=== PATIENT | female | born 1955 ===

== ENCOUNTER 2020-05-19 22:58 | Outpatient (REF) | payer OTHER, SELFPAY ==
[2020-05-20 01:52] LABS: SARS COV2 PCR INHOUSE NEGATIVE (Negative)
== END 2020-05-19 22:59 | disposition home or self-care (01) ==
LOC: HO.LAB 22:58
PROVIDERS: Visit Provider Internal Medicine
DX: Z20.828 Contact with and (suspected) exposure to other viral communicable diseases (principal)
CPT/HCPCS: U0003

== ENCOUNTER 2020-06-09 10:59 | Outpatient (REF) | payer OTHER, SELFPAY ==
[2020-06-09 11:23] LABS: COVID-19 Test Negative (Negative)
== END 2020-06-09 11:00 | disposition home or self-care (01) ==
LOC: HO.EMPCOV 10:59
PROVIDERS: Visit Provider Internal Medicine
DX: Z20.828 Contact with and (suspected) exposure to other viral communicable diseases (principal)
CPT/HCPCS: 87635; C9803

== ENCOUNTER → 2020-10-08 13:06 | Outpatient (REF) | payer OTHER, SELFPAY ==
--- NOTE | 2020-10-08 | ECG_ITS ---
Hook-up date: 2020-10-08 13:24:00 Duration: 24:42:00 Test Indications: PAF Medications: 40310 QRS complexes 158 Ventricular ectopics which represent <1 % of total QRS comp. 24 Supraventricular ectopics which represent <1 % of total QRS comp. * Paced QRS complexs which represent % of total QRS comp. VENTRICULAR ECTOPY 158 Isolated 0 Bigeminal Cycles 0 Couplets 0 Runs 0 Beats in Runs * Beats LONGEST at * BPM at :: -- * Beats FASTEST at * BPM at :: -- SUPRAVENTRICULAR ECTOPY 24 Isolated 0 Couplets 0 Runs 0 Beats in Runs * Beats LONGEST at * BPM at :: -- * Beats FASTEST at * BPM at :: -- HEART RATES 45 MIN at 10:05:37 2020-10-09 63 AVG 104 MAX at 16:07:41 2020-10-08 LONGEST RR 1.3440 secs at 10:05:36 2020-10-09 S-T LEVELS Channel 1 - 128 mm at 13:24:00 2020-10-08 - 128 mm at 13:24:00 2020-10-08 Channel 2 - 128 mm at 13:24:00 2020-10-08 - 128 mm at 13:24:00 2020-10-08 Channel 3 - 128 mm at 03:24:31 -- - 128 mm at 03:24:31 Basic rhythm Normal sinus rhythm No long pause or profound bradycardia Frequent Sinus bradycardia Rare Premature atrial complexes No sustained Atrial fibrillation Patient did not report any symptoms in the diary Referred By: Rafael Cummins Overread By: RAUDEL GARCIA MD
== END ==
LOC: HO.CARD 13:06
PROVIDERS: Visit Provider Internal Medicine
DX: I48.0 Paroxysmal atrial fibrillation (principal)
CPT/HCPCS: 93225; 93226

== ENCOUNTER → 2020-10-16 08:16 | Outpatient (BNVA) | payer OTHER, SELFPAY | PROVIDERS: PCP Internal Medicine; Visit Provider Internal Medicine | DX: I48.0 Paroxysmal atrial fibrillation (principal); R00.1 Bradycardia, unspecified; Z51.81 Encounter for therapeutic drug level monitoring; Z79.899 Other long term (current) drug therapy | CPT/HCPCS: 93005 ==

== ENCOUNTER 2020-10-23 08:12 | Outpatient (REF) | payer OTHER, SELFPAY ==
[2020-10-23 11:13] LABS: MANUAL DIFF FLAG NO
[2020-10-23 11:26] LABS: Basophils Percent Auto 0.5 % (0-2); Eosinophils Absolute Auto 0.1 X10*3/uL (0.0-0.4); Eosinophils Percent Auto 2.5 % (0-4); Hematocrit 39.1 % (37-47); Hemoglobin 12.6 g/dl (12.0-16.0); Lymphocytes Absolute Auto 1.8 X10*3/uL (1.2-4.9); Lymphocytes Percent Auto 40.1 % (20-40); Mean Corpuscular HGB Conc 32.2 g/dl (31.0-35.0); Mean Corpuscular Hemoglobin 30.3 pg (27.0-33.0); Mean Platelet Volume 11.7 fL (9.4-12.3); Monocytes Absolute Auto 0.3 X10*3/uL (0.1-1.2); Monocytes Percent Auto 7.1 % (2-11); Neutrophils Absolute Auto 2.2 X10*3/uL (2.0-8.3); Neutrophils Percent Auto 49.8 % (45-73); Platelet Count 245 X10*3/uL (160-400); Red Blood Count 4.16 X10*6/uL (4.20-5.50); Red Cell Distribution Width 12.8 % (11.0-16.0); White Blood Count 4.4 X10*3/uL (4.8-10.8)
[2020-10-23 11:46] LABS: Alanine Aminotransferase 21 U/L (0-31); Anion Gap 10 (12-20); Aspartate Amino Transferase 17 U/L (5-31); Blood Urea Nitrogen 22 mg/dL (9-16); Calcium 9.3 mg/dL (8.4-10.2); Carbon Dioxide 31 mmol/L (22-29); Chloride 105 mmol/L (96-108); Cholesterol 224 mg/dL; Estimated Glomerular Filt Rate > 60; Glucose Fasting 94 mg/dL (60-99); HDL Cholesterol 71 mg/dL; LDL Cholesterol Calculated 139 mg/dl; Potassium 4.5 mmol/L (3.3-5.1); Sodium 141 mmol/L (135-145); Triglycerides 74 mg/dL
[2020-10-23 11:53] LABS: TSH reflex Free T4 1.21 uIU/mL (0.32-4.0); Vitamin D 25-OH Total 40.1 ng/mL (>30)
[2020-10-23 14:48] LABS: FIT Int Ctl YES; FIT1 POSITIVE (NEGATIVE)
== END 2020-10-23 08:13 | disposition home or self-care (01) ==
LOC: HO.HMGCLDS 08:12
PROVIDERS: PCP Internal Medicine; Visit Provider Internal Medicine
DX: Z00.01 Encounter for general adult medical examination with abnormal findings (principal); I48.0 Paroxysmal atrial fibrillation; I10 Essential (primary) hypertension; Z78.0 Asymptomatic menopausal state
CPT/HCPCS: 36415; 80048; 80061; 82274; 82306; 84443; 84450; 84460; 85025

== ENCOUNTER → 2020-11-30 13:03 | Outpatient (BNVA) | payer OTHER, SELFPAY | PROVIDERS: PCP Internal Medicine; Referring Provider Internal Medicine; Visit Provider Nurse Practitioner ==

== ENCOUNTER 2021-01-02 08:45 | Day surgery (SDC) | payer OTHER, SELFPAY ==
--- NOTE | 2021-01-01 08:51 | P.CONAN_ITS ---
Documented by User: Lady Potter 01/01/21 08:54 HPI - Anesthesia Eval Consult details Narrative: 65yo F for Colonoscopy PAF - no OAC, ASA only PMFSH Active Problems Active Problems: All Active Problems (Updated 12/27/20 @ 16:23 by Stacey Hurley) Encounter for monitoring anti-arrhythmic therapy (Acute) Sinus bradycardia (Acute) Colon cancer screening (Acute) Family history of colon cancer (Acute) Positive FIT (fecal immunochemical test) (Acute) Family history of breast cancer in first degree relative (Acute) Menopause (Acute) Colonoscopy refused (Acute) Paroxysmal atrial fibrillation (Acute) Past Medical History Medical History (Updated 12/27/20 @ 16:23 by Stacye Hurley) Family history of breast cancer in first degree relative Menopause On beta laura at home Paroxysmal atrial fibrillation Positive FIT (fecal immunochemical test) Family History Family History Father Diabetes mellitus Sister Breast cancer, Onset Age: 49 Sister Thyroid cancer Daughter Breast cancer, Onset Age: 28 Surgical History Surgical History No pertinent past surgical history Social History Social History (Updated 11/30/20 @ 13:10 by Barbie Noriega) Household Members: Family Alcohol intake: never Patient Tobacco Use Status: Never used Tobacco Use of substances other than those prescribed or required for medical reasons: No Are you DNR?: No Advance Directives: No Advance Directives Information Provided: Yes Meds Allergies Allergy/AdvReac Type Severity Reaction Status Date / Time No Known Allergies Allergy Verified 01/02/21 09:02 [No Known Allergies*] Home Medications Medication Instructions Recorded Confirmed Last Taken Type aspirin 81 mg tablet,delayed 81 mg PO DAILY 10/09/20 12/27/20 12/18/20 08:00 History release cholecalciferol (vitamin D3) 50 50 mcg PO DAILY 10/09/20 12/27/20 Unknown History mcg (2,000 unit) capsule Exam Exam Date and Time: January 01, 2021 0851 Pertinent Lab Results Pertinent Lab Results: Laboratory Tests 10/23/20 10/23/20 08:40 08:40 WBC 4.4 L Hgb 12.6 Hct 39.1 Plt Count 245 Sodium 141 Potassium 4.5 Chloride 105 Carbon Dioxide 31 H BUN 22 H Creatinine 0.77 Narrative Narrative: EKG sinus bradycardia at 49/Min; no significant ST-T changes; normal MA/QTc. Holter-09/2020 Basic rhythm Normal sinus rhythm No long pause or profound bradycardia Frequent Sinus bradycardia Rare Premature atrial complexes No sustained Atrial fibrillation Patient did not report any symptoms in the diary Echocardiogram -2018 LVEF 60-65%; mild mitral and tricuspid regurgitation Myocardial perfusion imaging -2018 Normal perfusion without any ischemia or infarction Assessment and Plan Assessment Anesthesia Assessment: Chart Reviewed Documented by User: Meri Guzman 01/02/21 09:24 [facility] Past Medical History Medical History (Updated 12/27/20 @ 16:23 by Stacey Hurley) Family history of breast cancer in first degree relative Menopause On beta laura at home Paroxysmal atrial fibrillation Positive FIT (fecal immunochemical test) Family History Family History Father Diabetes mellitus Sister Breast cancer, Onset Age: 49 Sister Thyroid cancer Daughter Breast cancer, Onset Age: 28 Surgical History Surgical History No pertinent past surgical history Social History Social History (Updated 11/30/20 @ 13:10 by Barbie Noriega) Household Members: Family Alcohol intake: never Patient Tobacco Use Status: Never used Tobacco Use of substances other than those prescribed or required for medical reasons: No Are you DNR?: No Advance Directives: No Advance Directives Information Provided: Yes Meds Allergies Allergy/AdvReac Type Severity Reaction Status Date / Time No Known Allergies Allergy Verified 01/02/21 09:02 [No Known Allergies*] Home Medications Medication Instructions Recorded Confirmed Last Taken Type aspirin 81 mg tablet,delayed 81 mg PO DAILY 10/09/20 12/27/20 12/18/20 08:00 History release cholecalciferol (vitamin D3) 50 50 mcg PO DAILY 10/09/20 12/27/20 Unknown History mcg (2,000 unit) capsule Exam Airway Mallampati Class: II TM Dist: >3cm Neck ROM: Full Heart: rrr Lungs: cta Assessment and Plan Assessment Anesthesia Assessment: Anesthesia Plan Discussed and Chart Reviewed Final Anesthetic Review NPO: Yes ASA Class: II Final Preanesthetic Review: No Changes in Pt Med Stat and Consent Obtained/Reviewed Patient Risk: Intermediate Procedure Risk: Intermediate Anesthetic Plan Anesthetic Plan: MAC: Disposition: Standard PACU
[2021-01-02 09:09] VITALS: BP 132/58; PULSE 50; RESP 18; TEMP 36.3; O2SAT 99; BMI 24.8
[2021-01-02] MEDS: Lactated Ringers 1,000 ML 100 ML IVCONT (09:16)
--- NOTE | 2021-01-02 09:46 | MHC.SHP ---
Pre-Procedural Eval Section B Chief Complaint: positive fit test Relevant Family History (Specify if Yes): No Relevant Social History: None Present Medications: see Short Stay Collaborative assessment Medical History: Significant History (Family history of breast cancer in first degree relative Menopause On beta laura at home Paroxysmal atrial fibrillation Positive FIT (fecal immunochemical test)) History of Previous Operations: No relevant previous surgery Allergies: Allergies Allergy/AdvReac Type Severity Reaction Status Date / Time No Known Allergies Allergy Verified 01/02/21 09:02 [No Known Allergies*] Review of Systems Sugical H&P ROS: Negative: Constitution, Cardiovascular, Respiratory, Neurological, Psychiatric, Hem-Onc, Allergic/Immunologic, Gastrointestinal, Genitourinary, Musculoskeletal, Integumentary, Endocrine and Eyes/Ears/Nose/Throat Exam Surgical H&P Exam: Normal: HEENT, Normal: Heart, Normal: Lungs, Normal: Extremities, Normal: Abdomen, Normal: Skin and Normal: Neurological Plan Diagnosis/Plan: Unchanged I have reviewed the history and physical and performed a pertinent physical examination on my patient. No changes have occurred unless specified.
--- NOTE | 2021-01-02 09:59 | PM.OP ---
Brief Operative Note Date of Service: 01/02/21 Pre-op diagnosis: pos FIT test, altered bowel habit Post-op diagnosis: same Procedure: see op note Surgeon: Indu Thomas MD Anesthesia: MAC Was an Ground Defence Officer used for this Procedure?: No Estimated blood loss (mL): 0 Condition: stable Disposition: PACU
--- NOTE | 2021-01-02 09:59 | W.PM.OPN ---
Operative Note Operative Note Date of Service: 01/02/21 Narrative: Operative Information Procedure Description: Colonoscopy COLONOSCOPY Instrument: Olympus variable stiffness pediatric scope 190L Colonoscopy Monitoring: Vital signs and clinical assessment, continuous EKG monitoring, Pulse oximetry, Carbon Dioxide monitoring and blood pressure monitoring were done throughout the procedure. Colon withdrawal time was 52 minutes. Procedure: The patient was placed in the left lateral decubitis position and pre-procedure medications were administered. After a digital rectal examination of the ano-rectum, the video colonoscope was inserted into the rectum and advanced through the colon to the cecum/TI. The colonoscope was slowly withdrawn in a retrograde panoramic fashion and the colon mucosa was carefully examined including a retroflexed view of the rectum. Findings and interventions are described below. Procedure Difficulty:easy Findings: Terminal Ileum-normal Cecum:normal Ascending Colon: normal Transverse Colon -normal Descending Colon:normal Sigmoid Colon: Many diverticula seen, varying sizes. x2 pedunculated polyps noted, measuring 10-12 mm and removed with cold snare-retrieved Rectum: Retroflexion with small internal hemorrhoids, grade I, In mid rectum there was a kate cake shaped polyp lesion about 15 mm with slightly depressed center. It lifted v easily with ORISE. It was then removed with cautery and the edges ablated. After it was removed it was suctioned and would not come up the scope channel. The scope was pulled out with the polyp attached but on looking polyp not seen. an extensive search of the rectum and return to cecum with careful inspection back to the rectum failed to reveal the polyp lesion that was removed. We checked the towels and flushed scope several times but nothing seen. The area was marked with christel ink and biopsies taken from polypectomy site. Anorectum - normal Colon preparation: [place] Bowel Preparation Scale Right colon; 2 Transverse colon: 2 Left colon; 2 (0 = Unprepared colon segment with mucosa not seen due to solid stool that cannot be cleared. 1 = Portion of mucosa of the colon segment seen, but other areas of the colon segment not well seen due to staining, residual stool and/or opaque liquid. 2 = Minor amount of residual staining, small fragments of stool and/or opaque liquid, but mucosa of colon segment seen well. 3 = Entire mucosa of colon segment seen well with no residual staining, small fragments of stool or opaque liquid) Impression and Post Procedure Diagnosis: polyps internal hemorrhoids diverticular disease Plan: High fiber diet leaflet Avoid straining at stool, epsom salts and sitz bath, anusol supps or cream Repeat Colonoscopy in 3-[address] A/P due to the appearance of the polyp, it may have been early dysplasia, neoplasia is also possible but the mucosa lifted easily with ORISE We will also give her enema in post op area and see if we can retrieve any tissue. Above findings were reviewed with the patient and relevant handouts were provided if indicated.
[2021-01-02 11:03] VITALS: BP 121/60; PULSE 57; RESP 16; TEMP 36; O2SAT 98
[2021-01-02 11:18] VITALS: BP 136/68; PULSE 54; RESP 18; O2SAT 99
[2021-01-02 11:33] VITALS: BP 137/74; PULSE 56; RESP 18; O2SAT 100
[2021-01-02] MEDS: Sodium Phosphate,Mono-Dibasic 133 ML ENEMA PR (11:38)
[2021-01-02 12:10] VITALS: BP 137/64; PULSE 56; RESP 18; TEMP 36.4; O2SAT 100
--- NOTE | 2021-01-02 12:54 | PC.NURSE ---
1150 TO BR AFTER WEST ENEMA RETURNS STRAINED BY RN TO SEND TO LAB 1210 PT RETURN TO PACU 11 SIT AT BS PREP FOR DC AFTER VS
--- NOTE | 2021-01-02 13:04 | PC.NURSE ---
Discharge instructions given by Janice Flannery RN
== END 2021-01-02 12:55 | disposition home or self-care (01) ==
PROVIDERS: PCP Internal Medicine; Visit Provider Internal Medicine Gastroenterology
PROC: 0DJD8ZZ Inspection of Lower Intestinal Tract, Via Natural or Artificial Opening Endoscopic (ICD-10-PCS; CPT 45378; principal; 2021-01-02 10:10)
DX: R19.5 Other fecal abnormalities (principal); D12.5 Benign neoplasm of sigmoid colon; K62.1 Rectal polyp; K64.0 First degree hemorrhoids; K57.30 Diverticulosis of large intestine without perforation or abscess without bleeding; I48.0 Paroxysmal atrial fibrillation; Z79.82 Long term (current) use of aspirin; Z79.899 Other long term (current) drug therapy; Z80.0 Family history of malignant neoplasm of digestive organs
CPT/HCPCS: 45385; 45381; 88305

== ENCOUNTER 2021-01-22 07:26 | Outpatient (REF) | payer OTHER, SELFPAY ==
--- NOTE | ~2021-01-22 | MM_ITS ---
EXAMINATION: BONE DENSITOMETRY CLINICAL INDICATION: Asymptomatic menopausal state. COMPARISON: Baseline BD dated 08/31/2018. TECHNIQUE: Using a Pramana DXA System (software version: 13.1) manufactured by [employer], dual-energy x-ray absorptiometry was performed of the lumbar spine and left hip. The images are of good technical quality. Summary results are attached. FINDINGS: AP SPINE L1-L3 (excluding L4): The data of L1-L4 has been changed to exclude the L4 vertebral body, because probable degenerative changes at this level may cause overestimation of lumbar spine density. Current: BMD 1.277 g/cm2, Z-score 2.5, T-score 0.9, normal, 0.5% decrease from baseline (<5% change is not significant). Baseline: BMD 1.284 g/cm2. LEFT FEMUR, NECK: Current: BMD 0.787 g/cm2, Z-score -0.3, T-score -1.8, osteopenia. Baseline: BMD 0.816 g/cm2. LEFT FEMUR, TOTAL: Current: BMD 0.934 g/cm2, Z-score 0.6, T-score -0.6, normal, 1.5% decrease from baseline (<5% change is not significant). Baseline: BMD 0.948 g/cm2. IDENTIFIED RISK FACTORS: Menopause. HISTORY OF FRACTURE: None listed. MEDICATIONS: Vitamin D. MM/XR DEXA axial skeleton IMPRESSION: 1. DIAGNOSIS: Osteopenia based on the lowest T-score value of -1.8 in the femoral neck applying World Health Organization criteria. 2. 10-YEAR FRACTURE RISK PREDICTION, FRAX: Major osteoporotic fracture (clinical spine, forearm, hip or shoulder) 9.9%. Hip fracture 1.3%. 3. Treatment Recommendations: NOF guidelines recommend consideration for treatment in postmenopausal women and men age 50 and older presenting with the following: -A hip or vertebral (clinical or morphometric) fracture. -T-score less than or equal to -2.5 at the femoral neck or spine after appropriate evaluation to exclude secondary causes. -Low bone mass at the hip or spine and a 10-year fracture probability by FRAX of greater than or equal to 3% for hip fracture or greater than or equal to 20% for major osteoporotic fracture based on the [place] adapted WHO algorithm. 4. Other Recommendations: All treatment decisions require clinical judgment and consideration of individual patient factors, including patient preferences, comorbidities, previous drug use, risk factors not captured in the FRAX model (e.g. frailty, falls, vitamin D deficiency, increased bone turnover, interval significant decline in bone density) and possible under or overestimation of fracture risk by FRAX. Additional medical evaluation for secondary cause of low bone mineral density may be appropriate. FUTURE SCAN RECOMMENDATION: People with diagnosed cases of osteoporosis or at high risk for fracture should have regular bone mineral density tests. For patients eligible for Medicare, routine testing is allowed once every 2 years. The testing frequency can be increased to one year for patients who have rapidly progressing disease, those who are receiving or discontinuing medical therapy to restore bone mass, or have additional risk factors.
--- NOTE | ~2021-01-22 | MM_ITS ---
EXAMINATION: MM SCREENING DIGITAL BREAST TOMOSYNTHESIS, BILATERAL CLINICAL INFORMATION: Screening. Asymptomatic. The lifetime risk of breast cancer based on the Tyrer-Cuzick Model is 23.2%. Additional annual screening with breast MRI may be of benefit in women with a Score of 20% or greater. COMPARISON: Mammography: 08/31/2018 and 05/25/2007. TECHNIQUE: Digital breast tomosynthesis is performed in both the craniocaudal and mediolateral oblique views along with computer-aided detection (CAD). Synthesized 2D images are generated from the tomosynthesis. FINDINGS: The breasts are heterogeneously dense, which may obscure small masses (ACR BI-RADS breast composition Category c). There is multiplicity and bilaterality of calcifications which appear essentially stable. The right breast demonstrates a stable parenchymal pattern with architectural distortion superiorly from previous excisional biopsy. Within the upper outer aspect of the left breast, there is a region of architectural distortion, somewhat similar to prior studies but for which 90-degree mediolateral and craniocaudal spot compression views and possible ultrasound are recommended. MM/MM tomosynthesis screening BI IMPRESSION: Region of architectural distortion upper outer aspect of the left breast in patient with no listed history of left breast surgery for which additional workup is recommended as described. ASSESSMENT: BI-RADS 0: Incomplete - Need Additional Imaging Evaluation RECOMMENDATION: 1. Additional views of the left breast. 2. Targeted ultrasound if warranted after review of the additional views. 3. Radiology department staff will contact the patient for additional imaging. Consideration of breast MRI due to elevated risk score.
== END 2021-01-22 07:27 | disposition home or self-care (01) ==
LOC: HO.MAMMO 07:26
PROVIDERS: Visit Provider Internal Medicine
DX: Z12.31 Encounter for screening mammogram for malignant neoplasm of breast (principal); Z13.820 Encounter for screening for osteoporosis; Z78.0 Asymptomatic menopausal state; Z80.3 Family history of malignant neoplasm of breast
CPT/HCPCS: 77063; 77067; 77080

== ENCOUNTER 2021-01-25 08:03 | Outpatient (REF) | payer OTHER, SELFPAY ==
--- NOTE | ~2021-01-25 | MM_ITS ---
EXAMINATION: MM DIAGNOSTIC DIGITAL BREAST TOMOSYNTHESIS, LEFT US LEFT BREAST CLINICAL INFORMATION: Region of asymmetric density upper outer aspect of the left breast. COMPARISON: Mammography: 01/22/2021 and studies dating back to 05/25/2007 TECHNIQUE: Digital breast tomosynthesis is performed. 2D images are generated from the tomosynthesis. The following views are obtained: Spot compression left craniocaudal and 90 degree views. Targeted left breast ultrasound. FINDINGS: The breasts are heterogeneously dense, which may obscure small masses (ACR BI-RADS breast composition Category c). Additional views show a region of architectural distortion; however, it does appear similar to study of 08/31/2018. There is no history of surgery or trauma in this location. There are also noted to be some prominent retroareolar ducts. Targeted left breast ultrasound was then performed. No abnormal solid mass or suspicious cyst was identified. No region of architectural distortion or sound shadowing was identified with ultrasound in the upper outer aspect. The retroareolar region there are noted to be some prominent ducts without abnormal filling defects. Patient denies nipple discharge. Six-month follow-up left breast mammogram suggested to ensure stability of the density in the upper outer aspect. Results are discussed with the patient at time of visit. MM/MM tomosynthesis added views L IMPRESSION: Similar-appearing region of architectural distortion upper outer aspect of the left breast for which 6 month follow-up study is recommended. ASSESSMENT: BI-RADS 3: Probably Benign RECOMMENDATION: Diagnostic mammography in 6 months. This patient's information was entered into a reminder system with a target due date for their next mammogram.
--- NOTE | ~2021-01-25 | US_ITS ---
EXAMINATION: US DIAGNOSTIC ULTRASOUND BREAST, LEFT CLINICAL INFORMATION: Region of architectural distortion upper outer aspect. Prominent retroareolar ducts.. COMPARISON: Mammogram of same day and studies dating back to May 25, 2007. TECHNIQUE: Ultrasound of the breast is performed with real-time johnson scale imaging and color Doppler. FINDINGS: Targeted left breast ultrasound was performed. No abnormal solid mass or suspicious cystic was identified. No region of architectural distortion or sound shadowing was identified with ultrasound in the upper outer aspect. The retroareolar region there are noted to be some prominent ducts without abnormal filling defects. Patient denies nipple discharge. Six-month follow-up left breast mammogram suggested to ensure stability of the density in the upper outer aspect. Results are discussed with the patient at time of visit. US/US breast LT limited IMPRESSION: Similar appearing region of architectural distortion upper outer aspect of the left breast for which 6 month follow-up study is recommended. ASSESSMENT: BI-RADS 3: Probably Benign RECOMMENDATION: Diagnostic mammography in 6 months.
== END 2021-01-25 08:04 | disposition home or self-care (01) ==
LOC: HO.MAMMO 08:03
PROVIDERS: Visit Provider Internal Medicine
DX: N64.89 Other specified disorders of breast (principal)
CPT/HCPCS: 76642; 77061; 77065

== ENCOUNTER 2021-01-28 10:49 | Outpatient (REF) | payer OTHER, SELFPAY ==
[2021-01-28 14:23] LABS: Alanine Aminotransferase 22 U/L (0-31); Albumin Level 4.2 g/dL (3.5-5.0); Alkaline Phosphatase 55 U/L (39-117); Anion Gap 13 (12-20); Aspartate Amino Transferase 16 U/L (5-31); Bilirubin Total 0.3 mg/dL (0.0-1.0); Blood Urea Nitrogen 18 mg/dL (9-16); Calcium 9.7 mg/dL (8.4-10.2); Carbon Dioxide 25 mmol/L (22-29); Chloride 105 mmol/L (96-108); Estimated Glomerular Filt Rate > 60; Glucose Random 87 mg/dL (60-115); Potassium 4.2 mmol/L (3.3-5.1); Sodium 139 mmol/L (135-145); Total Protein 6.9 g/dL (6.5-8.0)
== END 2021-01-28 10:50 | disposition home or self-care (01) ==
LOC: HO.HMGCLDS 10:49
PROVIDERS: PCP Internal Medicine; Visit Provider Internal Medicine Gastroenterology
DX: K75.81 Nonalcoholic steatohepatitis (NASH) (principal); R19.5 Other fecal abnormalities
CPT/HCPCS: 36415; 80053

== ENCOUNTER 2021-01-29 06:14 | Outpatient (REF) | payer OTHER, SELFPAY ==
--- NOTE | ~2021-01-29 | CT_ITS ---
EXAMINATION: CT ABDOMEN AND PELVIS WITH CONTRAST CLINICAL INFORMATION: Other fecal abnormalities. COMPARISON: None. TECHNIQUE: Multidetector volumetric images were obtained from the superior aspect of the liver through the pubic symphysis following administration 85 mL of Omnipaque 350 intravenous contrast. Sagittal and coronal reformatted images were obtained on the technologist's workstation. Oral contrast: No This CT examination was performed using dose optimization techniques as appropriate, variously including the following: *Automated exposure control *Adjustment of mA and/or kV according to patient size (this includes techniques or standardized protocols for targeted exams where dose is matched to indication/reason for exam; i.e. extremities or head) *Use of iterative reconstruction technique DLP: 346 mGy-cm. FINDINGS: LUNG BASES: The lung bases are clear. The heart size is normal. LIVER, GALLBLADDER, AND BILIARY TREE: The liver is normal in size, shape, and attenuation. There is a 9 mm hypodensity right hepatic lobe image 26/3. The gallbladder is unremarkable with no evidence of radiopaque gallstones, gallbladder wall thickening, or obvious pericholecystic inflammatory changes. PANCREAS: Unremarkable. SPLEEN: Unremarkable. ADRENAL GLANDS: Unremarkable. KIDNEYS AND URETERS: The kidneys are normal in size, shape, and attenuation. No hydronephrosis, hydroureter, or calculi seen. No perinephric stranding. BLADDER: Unremarkable. GASTROINTESTINAL TRACT: There is large amount of stool seen throughout the colon without significant distention. The small bowel loops are normal caliber. A few scattered diverticuli seen in the sigmoid colon but no evidence of diverticulitis. Appendix is normal caliber. ABDOMINAL WALL: There is a small umbilical hernia containing fat. LYMPH NODES: Normal. VASCULAR: Unremarkable. PELVIC VISCERA: There is anteverted uterus with a heterogeneous lesion along the anterior myometrium measuring 1.4 cm on sagittal view 45/7. There is no adnexal mass or free fluid. No inguinal hernia. OSSEOUS STRUCTURES: There are degenerative disc changes with vacuum disc phenomenon at L3-L4, L4-L5 and L5-S1 disc levels. There is bilateral L4-L5 and right L5-S1 facet joint arthropathy and hypertrophy. CT/CT abdomen pelvis w con IMPRESSION: Moderate constipation without obstruction. Scattered sigmoid and descending colon diverticulosis without diverticulitis. Anteverted uterus with a heterogeneous lesion along the anterior mid body of the uterus. Question fibroid. Correlate with ultrasound.
[2021-01-29] MEDS: iohexoL 350 MG/ML 100 ML INFUS..BTL IV (08:56)
[2021-01-29] MEDS: Barium Sulfate Oral (Vanilla) 450 ML ORAL.SUSP 900 ML PO (08:57)
== END 2021-01-29 06:15 | disposition home or self-care (01) ==
LOC: HO.CT 06:14
PROVIDERS: PCP Internal Medicine; Visit Provider Internal Medicine Gastroenterology
DX: R19.5 Other fecal abnormalities (principal)
CPT/HCPCS: 74177; Q9967

== ENCOUNTER → 2021-02-26 14:12 | Outpatient (BNVA) | payer OTHER, SELFPAY | PROVIDERS: PCP Internal Medicine; Visit Provider Nurse Practitioner ==

== ENCOUNTER → 2021-04-18 13:25 | Outpatient (BNVA) | payer MEDICARE, SELFPAY | PROVIDERS: PCP Internal Medicine; Referring Provider Internal Medicine; Visit Provider Internal Medicine | DX: I48.0 Paroxysmal atrial fibrillation (principal); R00.1 Bradycardia, unspecified; Z51.81 Encounter for therapeutic drug level monitoring; Z79.899 Other long term (current) drug therapy | CPT/HCPCS: 93005; 99212 ==

== ENCOUNTER → 2021-07-01 14:00 | Outpatient (BNVA) | payer MEDICARE, SELFPAY | PROVIDERS: PCP Internal Medicine; Referring Provider Internal Medicine; Visit Provider Nurse Practitioner | DX: D12.6 Benign neoplasm of colon, unspecified (principal); Z80.0 Family history of malignant neoplasm of digestive organs | CPT/HCPCS: 99212 ==

== ENCOUNTER 2021-07-29 09:53 | Outpatient (REF) | payer MEDICARE, SELFPAY ==
--- NOTE | ~2021-07-29 | MM_ITS ---
EXAMINATION: MM DIAGNOSTIC DIGITAL BREAST TOMOSYNTHESIS, LEFT CLINICAL INFORMATION: Short interval follow-up left breast for question of architectural changes upper outer quadrant. Family history premenopausal breast cancer sister (42), daughter (28), paternal aunt (42), maternal grandmother (60). The lifetime risk of breast cancer based on the Tyrer-Cuzick Model is 25%. COMPARISON: Mammography: 01/25/2021, 01/22/2021 (BI-RADS 0), 08/31/2018, 05/25/2007 TECHNIQUE: Digital breast tomosynthesis is performed in both the craniocaudal and mediolateral oblique views along with computer-aided detection (CAD). Synthesized 2D images are generated from the tomosynthesis. FINDINGS: There are scattered areas of fibroglandular density (ACR BI-RADS breast composition Category b). Parenchymal pattern appears similar to recent prior exams. There is no developing density or interval architectural changes. Again, there are numerous calcifications present, greater upper quadrant. The axilla and skin contours are unremarkable. Left breast will be reassessed again at time of annual bilateral mammography. Preliminary results are provided to the patient at time of visit by the technologist. MM/MM tomosynthesis diagnostic LT IMPRESSION: No developing density or interval architectural changes. ASSESSMENT: BI-RADS 3: Probably Benign RECOMMENDATION: Diagnostic mammography at time of annual bilateral exam, due in 6 months. This patient's information was entered into a reminder system with a target due date for their next mammogram.
== END 2021-07-29 09:54 | disposition home or self-care (01) ==
LOC: HO.MAMMO 09:53
PROVIDERS: Visit Provider Internal Medicine
DX: R92.2 Inconclusive mammogram (principal)
CPT/HCPCS: 77061; 77065

== ENCOUNTER 2021-09-17 09:02 | Outpatient (REF) | payer MEDICARE, SELFPAY ==
[2021-09-17 11:31] LABS: MANUAL DIFF FLAG NO
[2021-09-17 11:50] LABS: Eosinophils Absolute Auto 0.2 X10*3/uL (0.0-0.4); Eosinophils Percent Auto 4.6 % (0-4); Hematocrit 39.7 % (37.0-47.0); Hemoglobin 12.7 g/dl (12.0-16.0); Imm Gran Abs Auto 0.01 X10*3/uL (0.00-0.03); Imm Gran Pct Auto 0.2 % (0.0-0.4); Lymphocytes Absolute Auto 1.6 X10*3/uL (1.2-4.9); Lymphocytes Percent Auto 40.1 % (20-40); Mean Corpuscular Hemoglobin 30.2 pg (27.0-33.0); Mean Corpuscular Volume 94.3 fL (80.0-98.0); Mean Platelet Volume 12.2 fL (9.4-12.3); Monocytes Absolute Auto 0.3 X10*3/uL (0.1-1.2); Monocytes Percent Auto 7.8 % (2-11); Neutrophils Absolute Auto 1.9 x10*3/uL (2.0-8.3); Neutrophils Percent Auto 46.3 % (45-73); Platelet Count 222 X10*3/uL (160-400); Red Blood Count 4.21 X10*6/uL (4.20-5.50); Red Cell Distribution Width 12.5 % (11.0-16.0); White Blood Count 4.1 X10*3/uL (4.8-10.8)
[2021-09-17 12:11] LABS: Alanine Aminotransferase 22 U/L (0-31); Anion Gap 12 (12-20); Aspartate Amino Transferase 17 U/L (5-31); Blood Urea Nitrogen 19 mg/dL (9-16); Calcium 10.4 mg/dL (8.4-10.2); Carbon Dioxide 29 mmol/L (22-29); Chloride 104 mmol/L (96-108); Cholesterol 227 mg/dL; Estimated Glomerular Filt Rate > 60; Glucose Fasting 95 mg/dL (60-99); HDL Cholesterol 68 mg/dL; LDL Cholesterol Calculated 144 mg/dl; Potassium 4.5 mmol/L (3.3-5.1); Sodium 140 mmol/L (135-145); Triglycerides 79 mg/dL
[2021-09-17 12:19] LABS: Vitamin D 25-OH Total 37.4 ng/mL (>30)
== END 2021-09-17 09:03 | disposition home or self-care (01) ==
LOC: HO.HMGCLDS 09:02
PROVIDERS: PCP Internal Medicine; Visit Provider Internal Medicine
DX: Z00.01 Encounter for general adult medical examination with abnormal findings (principal); R00.1 Bradycardia, unspecified; I48.0 Paroxysmal atrial fibrillation; D12.6 Benign neoplasm of colon, unspecified; Z78.0 Asymptomatic menopausal state; Z80.0 Family history of malignant neoplasm of digestive organs
CPT/HCPCS: 36415; 80048; 80061; 82306; 84450; 84460; 85025

== ENCOUNTER 2021-10-10 10:39 | Day surgery (SDC) | payer MEDICARE, SELFPAY ==
--- NOTE | 2021-10-09 10:29 | HO.ANESPROP2 ---
Documented by User: Lady Potter NP 10/09/21 10:31 HPI - Anesthesia Eval Consult details Narrative: 66yo F for Colonoscopy No anticoag PAF PMFSH Active Problems Active Problems: All Active Problems (Updated 09/17/21 @ 08:58 by Christal Fofana MD) Vaginal mass (Acute) Tubular adenoma of colon (Acute) Encounter for monitoring anti-arrhythmic therapy (Acute) Sinus bradycardia (Acute) Family history of colon cancer (Acute) Family history of breast cancer in first degree relative (Acute) Menopause (Acute) Paroxysmal atrial fibrillation (Acute) Past Medical History Medical History Family history of breast cancer in first degree relative Menopause On beta laura at home Paroxysmal atrial fibrillation Positive FIT (fecal immunochemical test) Vaginal mass Family History Family History Father Diabetes mellitus Sister Breast cancer, Onset Age: 49 Sister Thyroid cancer Daughter Breast cancer, Onset Age: 28 Surgical History Surgical History Hx of colonoscopy No pertinent past surgical history Social History Social History Household Members: Family Housing: House Alcohol intake: never Patient Tobacco Use Status: Never used Tobacco e-Cigarette/Vaping Use: Never Used Use of substances other than those prescribed or required for medical reasons: No Advance Directives: No Advance Directives Information Provided: Yes Recently lost weight without trying: No service: No Current occupational status: employed Meds Allergies Allergy/AdvReac Type Severity Reaction Status Date / Time No Known Allergies Allergy Verified 10/07/21 10:24 [No Known Allergies*] Home Medications Medication Instructions Recorded Confirmed Last Taken Type cholecalciferol (vitamin D3) 50 50 mcg PO DAILY 10/09/20 10/07/21 Unknown History mcg (2,000 unit) capsule melatonin 5 mg capsule 5 mg PO BEDTIME PRN 09/17/21 10/07/21 Unknown History Exam Exam Date and Time: October 09, 2021 1029 Pertinent Lab Results Pertinent Lab Results: Laboratory Tests 09/17/21 09/17/21 09:09 09:09 WBC 4.1 L Hgb 12.7 Hct 39.7 Plt Count 222 Sodium 140 Potassium 4.5 Chloride 104 Carbon Dioxide 29 BUN 19 H Creatinine 0.77 Narrative Narrative: EKG 03/2021 sinus bradycardia, 47/Min; no significant ST-T changes and otherwise unremarkable; normal OR/QTc. Assessment and Plan Assessment Anesthesia Assessment: Chart Reviewed Documented by User: Quiana Menezes MD 10/10/21 11:51 PMFSH Past Medical History Medical History Family history of breast cancer in first degree relative Menopause On beta laura at home Paroxysmal atrial fibrillation Positive FIT (fecal immunochemical test) Vaginal mass Functional capacity: independent ambulation Patient : No Family History Family History Father Diabetes mellitus Sister Breast cancer, Onset Age: 49 Sister Thyroid cancer Daughter Breast cancer, Onset Age: 28 Family history of problems with anesthesia: No Surgical History Surgical History Hx of colonoscopy No pertinent past surgical history History of Problems with Anesthesia: No Social History Social History Household Members: Family Housing: House Alcohol intake: never Patient Tobacco Use Status: Never used Tobacco e-Cigarette/Vaping Use: Never Used Use of substances other than those prescribed or required for medical reasons: No Advance Directives: No Advance Directives Information Provided: Yes Recently lost weight without trying: No service: No Current occupational status: employed Meds Allergies Allergy/AdvReac Type Severity Reaction Status Date / Time No Known Allergies Allergy Verified 10/07/21 10:24 [No Known Allergies*] Home Medications Medication Instructions Recorded Confirmed Last Taken Type cholecalciferol (vitamin D3) 50 50 mcg PO DAILY 10/09/20 10/07/21 Unknown History mcg (2,000 unit) capsule melatonin 5 mg capsule 5 mg PO BEDTIME PRN 09/17/21 10/07/21 Unknown History Exam Airway Mallampati Class: II TM Dist: >3cm Neck ROM: Full Heart: RRR Lungs: CTA Assessment and Plan Final Anesthetic Review Family History of Problems with Anesthesia: No History of Problems with Anesthesia: No NPO: Yes ASA Class: II Final Preanesthetic Review: No Changes in Pt Med Stat, Meds/Allgs Chart Reviewed, Consent Obtained/Reviewed and Anes Risks/Benef Reviewed Patient Risk: Low Procedure Risk: Low Anesthetic Plan Anesthetic Plan: MAC: Disposition: Standard PACU
[2021-10-10 10:51] VITALS: BP 132/56; PULSE 51; RESP 16; TEMP 36.7; O2SAT 97; BMI 25.6
[2021-10-10] MEDS: Lactated Ringers 1,000 ML 100 ML IVCONT (11:13)
--- NOTE | 2021-10-10 11:36 | P.HPSUR_ITS ---
Pre-Procedural Eval Section A Date of Service: 10/10/21 Section B Chief Complaint: Benign neoplasm of colon unspecified Details of Present Illness: FH of breast cancer Relevant Family History (Specify if Yes): No Relevant Social History: None Present Medications: see Short Stay [facility] assessment Medical History: Significant History (Family history of breast cancer in first degree relative Menopause On beta laura at home Paroxysmal atrial fibrillation Positive FIT (fecal immunochemical test) Vaginal mass) History of Previous Operations: Relevant previous surgery/procedure and date(s) (colonoscopy) Allergies: Allergies Allergy/AdvReac Type Severity Reaction Status Date / Time No Known Allergies Allergy Verified 10/07/21 10:24 [No Known Allergies*] Review of Systems Sugical H&P ROS: Negative: Constitution, Cardiovascular, Respiratory, Neurological, Psychiatric, Hem-Onc, Allergic/Immunologic, Gastrointestinal, Genitourinary, Musculoskeletal, Integumentary, Endocrine and Eyes/Ears/Nose/Throat Exam Surgical H&P Exam: Normal: HEENT, Normal: Heart, Normal: Lungs, Normal: Extremities, Normal: Abdomen, Normal: Skin and Normal: Neurological Plan Diagnosis/Plan: Unchanged I have reviewed the history and physical and performed a pertinent physical examination on my patient. No changes have occurred unless specified.
--- NOTE | 2021-10-10 11:37 | P.BOP_ITS ---
Brief Operative Note Date of Service: 10/10/21 Pre-op diagnosis: hx of polyps Post-op diagnosis: same Procedure: see op note Surgeon: Indu Thomas MD Anesthesia: MAC Was an Supervising Librarian used for this Procedure?: No Estimated blood loss (mL): 0 Condition: stable Disposition: PACU
--- NOTE | 2021-10-10 11:37 | P.OP_ITS ---
Operative Note Operative Note Date of Service: 10/10/21 Narrative: Operative Information Procedure Description: Colonoscopy COLONOSCOPY Instrument: Olympus variable stiffness adult scope 190L Colonoscopy Monitoring: Vital signs and clinical assessment, continuous EKG monitoring, Pulse oximetry, Carbon Dioxide monitoring and blood pressure monitoring were done throughout the procedure. Colon withdrawal time was 8 minutes. Procedure: The patient was placed in the left lateral decubitis position and pre-procedure medications were administered. After a digital rectal examination of the ano-rectum, the video colonoscope was inserted into the rectum and advanced through the colon to the cecum/TI. The colonoscope was slowly withdrawn in a retrograde panoramic fashion and the colon mucosa was carefully examined including a retroflexed view of the rectum. Findings and interventions are described below. Procedure Difficulty: easy Findings: Terminal Ileum-normal Cecum:normal Ascending Colon: x 1 sessile polyp like lesion 6-8 mm removed with forceps Transverse Colon -normal Descending Colon:normal Sigmoid Colon: mild diverticulosis Rectum: Retroflexion with small internal hemorrhoids, grade I, tattoo noted, one small polyp near the area 4-5 mm removed with forceps Anorectum - normal Colon preparation: [place] Bowel Preparation Scale Right colon; 3 Transverse colon: 3 Left colon; 3 (0 = Unprepared colon segment with mucosa not seen due to solid stool that cannot be cleared. 1 = Portion of mucosa of the colon segment seen, but other areas of the colon segment not well seen due to staining, residual stool and/or opaque liquid. 2 = Minor amount of residual staining, small fragments of stool and/or opaque liquid, but mucosa of colon segment seen well. 3 = Entire mucosa of colon segment seen well with no residual staining, small fragments of stool or opaque liquid) Impression and Post Procedure Diagnosis: polyps internal hemorrhoids diverticular disease Plan: High fiber diet leaflet Avoid straining at stool, epsom salts and sitz bath, anusol supps or cream Repeat Colonoscopy in 2-3 years due to hx of polyps or earlier if clinically indicated Above findings were reviewed with the patient and relevant handouts were provided if indicated.
[2021-10-10 12:05] VITALS: BP 106/54; PULSE 54; RESP 16; TEMP 36.1; O2SAT 99
[2021-10-10 12:20] VITALS: BP 117/22; PULSE 56; RESP 18; TEMP 36.1; O2SAT 100
--- NOTE | 2021-10-10 14:13 | HO.POSTANES ---
Post Anesthesia Evaluation Post Anesthesia Evaluation Vital Signs: Vital Signs Temp Pulse Resp BP Pulse Ox 10/10/21 12:20 97.0 F 56 18 117/22 L 100 10/10/21 12:05 97.0 F 54 16 106/54 L 99 10/10/21 10:51 98.0 F 51 16 132/56 L 97 Anesthesia: Monitored Mental Status: Awake Pain Control: Satisfactory Nausea/Vomiting: None Hydration: Adequate Anesthesia-Related Issues: No Anes. Related Issues
== END 2021-10-10 12:46 | disposition home or self-care (01) ==
PROVIDERS: PCP Internal Medicine; Visit Provider Internal Medicine Gastroenterology
PROC: 0DJD8ZZ Inspection of Lower Intestinal Tract, Via Natural or Artificial Opening Endoscopic (ICD-10-PCS; CPT 45378; principal; 2021-10-10 11:50)
DX: D12.6 Benign neoplasm of colon, unspecified (principal); Z80.0 Family history of malignant neoplasm of digestive organs; D12.2 Benign neoplasm of ascending colon; K62.1 Rectal polyp; K57.30 Diverticulosis of large intestine without perforation or abscess without bleeding; K64.0 First degree hemorrhoids; I48.0 Paroxysmal atrial fibrillation; R00.1 Bradycardia, unspecified; N89.8 Other specified noninflammatory disorders of vagina; Z79.899 Other long term (current) drug therapy; Z80.3 Family history of malignant neoplasm of breast
CPT/HCPCS: 45380; 88305

== ENCOUNTER → 2021-10-22 09:12 | Outpatient (BNVA) | payer MEDICARE, SELFPAY | PROVIDERS: PCP Internal Medicine; Referring Provider Internal Medicine; Visit Provider Internal Medicine | DX: I48.0 Paroxysmal atrial fibrillation (principal); R00.1 Bradycardia, unspecified; Z51.81 Encounter for therapeutic drug level monitoring; Z79.899 Other long term (current) drug therapy | CPT/HCPCS: 93005; 99212 ==

== ENCOUNTER 2022-02-12 12:28 | Outpatient (REF) | payer MEDICARE, SELFPAY ==
--- NOTE | ~2022-02-12 | MM_ITS ---
EXAMINATION: MM DIAGNOSTIC DIGITAL BREAST TOMOSYNTHESIS, BILATERAL TARGETED LEFT BREAST ULTRASOUND CLINICAL INFORMATION: Six-month follow up left breast mammogram and screening right breast mammogram. Right breast excisional biopsy. The lifetime risk of breast cancer based on the Tyrer-Cuzick Model is 21.4%. Additional annual screening with breast MRI may be of benefit in women with a score of 20% or greater. COMPARISON: Mammography: 07/29/2021 and studies dating back to 05/25/2007. TECHNIQUE: Digital breast tomosynthesis is performed in both the craniocaudal and mediolateral oblique views along with computer-aided detection (CAD). Synthesized 2D images are generated from the tomosynthesis. Additional full-field 90 degree mediolateral view as well as spot compression view mediolateral oblique projection left breast. Targeted left breast ultrasound. FINDINGS: There are scattered areas of fibroglandular density (ACR BI-RADS breast composition Category b). RIGHT BREAST: There is a stable parenchymal pattern of the right breast with post-surgical change from excisional biopsy as well as stable calcifications. LEFT BREAST: The region of architectural distortion within the superior aspect of the left breast appears to have some increased density present as well as more prominent architectural distortion. Targeted left breast ultrasound superior aspect did not demonstrate any abnormal cystic or solid mass. No region of abnormal distal sound shadowing was identified. No edematous change within the parenchyma identified. Stereotactic core biopsy of the left breast is recommended. Results are discussed with the patient at time of visit. Provider's office was called by the breast center buckle sorter with the above recommendation. MM/MM tomosynthesis diagnostic BI IMPRESSION: Region of architectural distortion without ultrasound correlate identified. Recommend stereotactic core biopsy. ASSESSMENT: BI-RADS 4: Suspicious. RECOMMENDATION: Stereotactic core biopsy of the left breast.
== END 2022-02-12 12:29 | disposition home or self-care (01) ==
LOC: HO.MAMMO 12:28
PROVIDERS: Visit Provider Internal Medicine
DX: N64.89 Other specified disorders of breast (principal)
CPT/HCPCS: 76642; 77062; 77066

== ENCOUNTER → 2022-02-19 08:35 | Outpatient (BNVA) | payer MEDICARE, SELFPAY | PROVIDERS: PCP Internal Medicine; Visit Provider Surgery | DX: R92.8 Other abnormal and inconclusive findings on diagnostic imaging of breast (principal) | CPT/HCPCS: 99202 ==

== ENCOUNTER 2022-03-14 07:59 | Outpatient (REF) | payer MEDICARE, SELFPAY ==
--- NOTE | ~2022-03-14 | MM_ITS ---
EXAMINATION: STEREOTACTIC TOMOSYNTHESIS-GUIDED VACUUM-ASSISTED BREAST BIOPSY, LEFT SPECIMEN RADIOGRAPH, LEFT POST PROCEDURE DIGITAL MAMMOGRAM, LEFT CLINICAL INFORMATION: Region of architectural distortion upper outer aspect of the left breast. COMPARISON: February 12, 2022 and studies dating back to August 31, 2018. TECHNIQUE/PROCEDURE: Informed consent was obtained from the patient after discussion of the benefits, risks, and alternatives to biopsy today. Patient appeared to understand. Gave opportunity for questions. Patient signed consent form. BIOPSY TABLE: [employer] Aff[employer]one Biopsy System. LESION: Region of architectural distortion. LOCAL ANESTHESIA: 40 mL 1% lidocaine DERMATOTOMY: Single skin gretel dermatotomy performed. NEEDLE: [employer] Eviva 9-gauge vacuum assisted core biopsy device. APPROACH: Lateral. TARGETING: Digital breast tomosynthesis used for targeting. CORES: 20. CLIP: T shaped. SPECIMEN RADIOGRAPH: Specimen radiograph is taken in separate room using digital mammography. A few scattered calcifications are present however it was architectural distortion that was targeted and not any grouping of calcifications. POST PROCEDURE UNILATERAL DIGITAL MAMMOGRAM: The post biopsy mammogram is performed in separate room using separate digital mammography equipment from the biopsy procedure. Craniocaudal and 90 degree mediolateral views are obtained. The breasts are heterogeneously dense, which may obscure small masses (breast composition category: c). The clip marker is in position. The region of architectural distortion was biopsied. No gross hematoma. The patient tolerated the procedure well. No immediate complications. Home instructions reviewed with the patient. Final pathology results are pending. MM/MM stereotactic biopsy LT IMPRESSION: 1. Digital tomosynthesis-guided core biopsy left breast with clip placement. 2. Specimen radiograph taken and post procedure mammogram. There is satisfactory positioning of the biopsy clip. 3. Final pathology results pending. An addendum report will be issued.
[2022-03-14] MEDS: Lidocaine HCl 1 % 20 ML VIAL 37 ML SUBCUT (09:40)
[2022-03-14] MEDS: Sodium Bicarbonate 8.4% 50 MEQ/50 ML VIAL SUBCUT (09:41)
== END 2022-03-14 08:00 | disposition home or self-care (01) ==
LOC: HO.MAMMO 07:59
PROVIDERS: PCP Internal Medicine; Visit Provider Surgery
DX: R92.8 Other abnormal and inconclusive findings on diagnostic imaging of breast (principal)
CPT/HCPCS: 19081; 88305; 88341; 88342; A4648

== ENCOUNTER → 2022-03-20 08:56 | Outpatient (BNVA) | payer MEDICARE, SELFPAY | PROVIDERS: PCP Internal Medicine; Visit Provider Surgery | DX: N60.92 Unspecified benign mammary dysplasia of left breast (principal); Z98.890 Other specified postprocedural states | CPT/HCPCS: 99212 ==

== ENCOUNTER → 2022-04-21 12:53 | Outpatient (BNVA) | payer MEDICARE, SELFPAY | PROVIDERS: PCP Internal Medicine; Visit Provider Internal Medicine | DX: I48.0 Paroxysmal atrial fibrillation (principal); R00.1 Bradycardia, unspecified; Z51.81 Encounter for therapeutic drug level monitoring; Z79.899 Other long term (current) drug therapy | CPT/HCPCS: 93005; 99212 ==

== ENCOUNTER 2022-05-23 06:55 | Day surgery (SDC) | payer MEDICARE, SELFPAY ==
--- NOTE | 2022-05-22 09:04 | P.CONAN_ITS ---
Documented by User: Lady Potter NP 05/22/22 09:05 HPI - Anesthesia Eval Consult details Narrative: 67yo F for Right Breast Lumpectomy/Needle Loc Afib, no anticoag PMFSH Active Problems Active Problems: All Active Problems (Updated 03/20/22 @ 09:20 by Harley Hameed MD) Atypical ductal hyperplasia of breast (Acute) Abnormal mammogram of left breast (Acute) Laceration of thumb (Acute) Encounter for monitoring anti-arrhythmic therapy (Acute) Sinus bradycardia (Acute) Family history of colon cancer (Acute) Tubular adenoma of colon (Acute) Vaginal mass (Acute) Family history of breast cancer in first degree relative (Acute) Menopause (Acute) Paroxysmal atrial fibrillation (Acute) Past Medical History Medical History Abnormal mammogram of left breast Atypical ductal hyperplasia of breast Family history of breast cancer in first degree relative Menopause On beta laura at home Paroxysmal atrial fibrillation Positive FIT (fecal immunochemical test) Vaginal mass Family History Family History Father Diabetes mellitus Sister Breast cancer, Onset Age: 49 Sister Thyroid cancer Daughter Breast cancer, Onset Age: 28 Family history of problems with anesthesia: No Surgical History Surgical History (Updated 05/22/22 @ 09:49 by Demetri Cintron RN) Hx of colonoscopy History of Problems with Anesthesia: No Social History Social History Household Members: Family Housing: House Alcohol intake: never Patient Tobacco Use Status: Never used Tobacco e-Cigarette/Vaping Use: Never Used Use of substances other than those prescribed or required for medical reasons: No Are you DNR?: No Advance Directives: No Advance Directives Information Provided: Yes service: No Current occupational status: employed Meds Allergies Allergy/AdvReac Type Severity Reaction Status Date / Time No Known Allergies Allergy Verified 05/19/22 13:09 [No Known Allergies*] Home Medications Medication Instructions Recorded Confirmed Last Taken Type cholecalciferol (vitamin D3) 50 50 mcg PO DAILY 10/09/20 05/19/22 Unknown History mcg (2,000 unit) capsule melatonin 5 mg capsule 5 mg PO BEDTIME PRN Sleep 09/17/21 05/19/22 Unknown History Exam Exam Date and Time: May 22, 2022 0904 Pertinent Lab Results Pertinent Lab Results: Laboratory Tests 09/17/21 09/17/21 09:09 09:09 WBC 4.1 L Hgb 12.7 Hct 39.7 Plt Count 222 Sodium 140 Potassium 4.5 Chloride 104 Carbon Dioxide 29 BUN 19 H Creatinine 0.77 Narrative Narrative: EKG 04/2022 sinus bradycardia at 46/Min; nonspecific ST-T changes; normal OH and corrected QT Assessment and Plan Assessment Anesthesia Assessment: Chart Reviewed Final Anesthetic Review Family History of Problems with Anesthesia: No History of Problems with Anesthesia: No Documented by User: Bernardo Gutierrez MD 05/23/22 10:06 [facility] Past Medical History Medical History Abnormal mammogram of left breast Atypical ductal hyperplasia of breast Family history of breast cancer in first degree relative Menopause On beta laura at home Paroxysmal atrial fibrillation Positive FIT (fecal immunochemical test) Vaginal mass Family History Family History Father Diabetes mellitus Sister Breast cancer, Onset Age: 49 Sister Thyroid cancer Daughter Breast cancer, Onset Age: 28 Family history of problems with anesthesia: No Surgical History Surgical History (Updated 05/22/22 @ 09:49 by Demetri Cintron RN) Hx of colonoscopy History of Problems with Anesthesia: No Social History Social History Household Members: Family Housing: House Alcohol intake: never Patient Tobacco Use Status: Never used Tobacco e-Cigarette/Vaping Use: Never Used Use of substances other than those prescribed or required for medical reasons: No Are you DNR?: No Advance Directives: No Advance Directives Information Provided: Yes service: No Current occupational status: employed Meds Allergies Allergy/AdvReac Type Severity Reaction Status Date / Time No Known Allergies Allergy Verified 05/19/22 13:09 [No Known Allergies*] Home Medications Medication Instructions Recorded Confirmed Last Taken Type cholecalciferol (vitamin D3) 50 50 mcg PO DAILY 10/09/20 05/19/22 Unknown History mcg (2,000 unit) capsule melatonin 5 mg capsule 5 mg PO BEDTIME PRN Sleep 09/17/21 05/19/22 Unknown History Exam Airway Mallampati Class: I TM Dist: >3cm Neck ROM: Full Loose/Missing/Broken Teeth: No Assessment and Plan Final Anesthetic Review Family History of Problems with Anesthesia: No History of Problems with Anesthesia: No NPO: Yes ASA Class: II Final Preanesthetic Review: No Changes in Pt Med Stat, Meds/Allgs Chart Reviewed, Consent Obtained/Reviewed and Anes Risks/Benef Reviewed Patient Risk: Low Procedure Risk: Low Anesthetic Plan Anesthetic Plan: GA and Agree w/ Assess. and Plan Disposition: Standard PACU
[2022-05-23] VITALS (7 sets, daily range): BP systolic 117–151; BP diastolic 56–67; PULSE 49–65; RESP 16; TEMP 36.3–36.5; O2SAT 98–100; BMI 25.6
--- NOTE | ~2022-05-23 | MM_ITS ---
EXAMINATION: MM MAMMOGRAM GUIDED NEEDLE LOCALIZATION BREAST, LEFT MM NEEDLE LOCALIZATION SPECIMEN FROM THE LEFT BREAST CLINICAL INFORMATION: Atypical ductal hyperplasia involving sclerosing adenosis with microcalcifications. Focal radial scar formation. No invasive carcinoma. COMPARISON: Stereotactic biopsy 03/14/2022, mammography 01/23/2022 TECHNIQUE NEEDLE LOC: Proper informed consent is obtained from the patient after discussion of the procedure, potential risks and complications, and alternatives including declining the procedure today. Patient was given an opportunity for questions. The patient appeared to understand. The patient consented to the procedure and signed the consent form. GUIDANCE: Digital mammography. APPROACH: Caudal Cranial. TARGET: T shaped biopsy clip marker upper breast. ANESTHESIA: Carbonated lidocaine 1%: 6 mL. LOCALIZATION MARKER: [employer]. 7.5 cm length. The skin is prepped and local anesthesia administered. The needle is placed and position assessed with mammography. The wire is hooked into position. Carr needle protector placed. The patient tolerated the procedure well and had no immediate complication. Procedure results discussed with Dr. Hameed prior to surgery. TECHNIQUE SPECIMEN RADIOGRAPH: Imaging of the excised specimen is performed using digital mammography in 1 view. FINDINGS SPECIMEN RADIOGRAPH: The specimen shows the distal needle and distal hookwire are delivered intact. The biopsy clip marker and calcifications are identified in the specimen. Results were called to Dr. Harley Hameed in the operating room at the time of imaging. MM/MM needle loc LT IMPRESSION: 1. Status post left breast needle localization with wire hooked into position. 2. Post operative specimen radiograph obtained.
[2022-05-23] MEDS: Lactated Ringers 1,000 ML 100 ML IVCONT (09:00)
[2022-05-23] MEDS: Lidocaine HCl 1 % 20 ML VIAL 9 ML SUBCUT (09:05)
--- NOTE | 2022-05-23 09:05 | MHC.SHP ---
Pre-Procedural Eval Section A Date of Service: 05/23/22 Section B Chief Complaint: dysplasia of breast/ RT BR NEEDLE LOCALIZATION Details of Present Illness: has atypical ductal hyperplasia of the left breast Present Medications: see Short Stay Collaborative assessment Medical History: Significant History ( paroxysmally atrial fibrillation) Allergies: Allergies Allergy/AdvReac Type Severity Reaction Status Date / Time No Known Allergies Allergy Verified 05/19/22 13:09 [No Known Allergies*] Review of Systems Sugical H&P ROS: Negative: Constitution, Cardiovascular, Respiratory, Neurological, Psychiatric, Hem-Onc, Allergic/Immunologic, Gastrointestinal, Genitourinary, Musculoskeletal, Integumentary, Endocrine and Eyes/Ears/Nose/Throat Exam Surgical H&P Exam: Normal: HEENT, Normal: Heart, Normal: Lungs, Normal: Extremities, Normal: Abdomen, Normal: Skin and Normal: Neurological Plan Diagnosis/Plan: Unchanged I have reviewed the history and physical and performed a pertinent physical examination on my patient. No changes have occurred unless specified.
[2022-05-23] MEDS: Sodium Bicarbonate 8.4% 50 MEQ/50 ML VIAL SUBCUT (09:06)
--- NOTE | 2022-05-23 10:07 | W.PM.OPN ---
Operative Note Operative Note Date of Service: 05/23/22 Narrative: Preop diagnosis: Atypical ductal hyperplasia, left breast Postop diagnosis: The same Procedure: Left breast lumpectomy with needle localization Surgeon: Harley Hameed MD certified teacher assistant: MARI Johnson The patient is a 67 year female who had a stereotactic biopsy of the left breast last February 2022 showing atypical ductal hyperplasia. Explained to her that it would be best to proceed with lumpectomy with needle localization in view of the association with high-grade lesions. She understood the technique of left breast lumpectomy with needle localization. She was aware the risks, benefits, and alternatives. She had undergone needle localization earlier . I reviewed the films with the radiologist.She was brought to the operating room and placed supine under general anesthesia via just mask airway. The left breast was prepped and draped in the usual sterile fashion. The lysed needle was seen entering from superiorly to inferiorly on the upper breast. I infiltrated the planned line of decision with lidocaine 1%. I made a transverse incision on the skin tangential to the localizing needle using blade 15. This carried down through the full-thickness of the skin subcutaneous fat with electrocautery. Then proceeded to use the curved Palafox scissors to divide breast tissue surrounding the needle periodically palpating for the needle and following this until we were past the tip. I made sure to include good margins of breast tissue surrounding the localizing needle. I marked the lateral and superior margins with sutures I sent the specimen for re-ray and immediate gross examination. I reapposed the breast tissue with Dexon 3-0 interrupted sutures well waiting for a call from the radiologist. We then closed the skin with being subcuticular Dexon 4-0 stitch. The area was infiltrated with Marcaine 0.5% for postop DEB. Dressings were applied. We then received a call from the radiologist confirming that the biopsy clip was present along with the entire localizing needle. The procedure was then completed. The patient tolerated procedure well. There were no immediate complications. She was transferred to recovery room with stable vital signs after extubation
== END 2022-05-23 11:52 | disposition home or self-care (01) ==
PROVIDERS: PCP Internal Medicine; Visit Provider Surgery
PROC: (CPT 19301; principal; 2022-05-23 09:20)
DX: D05.12 Intraductal carcinoma in situ of left breast (principal); Z80.3 Family history of malignant neoplasm of breast; N60.92 Unspecified benign mammary dysplasia of left breast; I48.91 Unspecified atrial fibrillation; Z79.899 Other long term (current) drug therapy
CPT/HCPCS: 19301; 19281; 88307; 88329; 88341; 88342; 88360; A4648; J0690; J2795; J3010

== ENCOUNTER → 2022-06-05 09:15 | Outpatient (BNVA) | payer MEDICARE, SELFPAY | PROVIDERS: PCP Internal Medicine; Visit Provider Surgery | DX: D05.12 Intraductal carcinoma in situ of left breast (principal); N60.92 Unspecified benign mammary dysplasia of left breast; Z17.0 Estrogen receptor positive status [ER+]; Z78.0 Asymptomatic menopausal state; Z80.3 Family history of malignant neoplasm of breast | CPT/HCPCS: 99212 ==

== ENCOUNTER 2022-06-24 07:36 | Day surgery (SDC) | payer MEDICARE, SELFPAY ==
[2022-06-18 11:21] VITALS: BMI 26.2
--- NOTE | 2022-06-23 09:20 | HO.ANESPROP2 ---
Documented by User: Lady Potter NP 06/23/22 09:23 HPI - Anesthesia Eval Consult details Narrative: 67yo F for Left Wider Breast Re-Excision of Intraductal in situ s/p lumpectomy 05/2022 with GA-LMA 3 Afib, anticoag PMFSH Active Problems Active Problems: All Active Problems (Updated 06/05/22 @ 09:44 by Harley Hameed MD) Encounter for monitoring anti-arrhythmic therapy (Acute) Sinus bradycardia (Acute) Family history of colon cancer (Acute) Tubular adenoma of colon (Acute) Laceration of thumb (Acute) Ductal carcinoma in situ (DCIS) of left breast (Acute) Atypical ductal hyperplasia of breast (Acute) Abnormal mammogram of left breast (Acute) Vaginal mass (Acute) Family history of breast cancer in first degree relative (Acute) Menopause (Acute) Paroxysmal atrial fibrillation (Acute) Past Medical History Medical History Abnormal mammogram of left breast 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 Family history of breast cancer in first degree relative Menopause On beta laura at home Paroxysmal atrial fibrillation Positive FIT (fecal immunochemical test) Vaginal mass Family History Family History Father Diabetes mellitus Sister Breast cancer, Onset Age: 49 Sister Thyroid cancer Daughter Breast cancer, Onset Age: 28 Family history of problems with anesthesia: No Surgical History Surgical History History of lumpectomy of left breast Hx of colonoscopy History of Problems with Anesthesia: No Social History Social History Household Members: Family Housing: House Are you a primary clinical care coordinator to a significant other at home: No Do you presently have visiting nurse or other home services: No Alcohol intake: never Patient Tobacco Use Status: Never used Tobacco e-Cigarette/Vaping Use: Never Used Use of substances other than those prescribed or required for medical reasons: No Have you been hit, kicked, punched, or otherwise hurt by someone within the past year? If so, by whom?: No Are you DNR?: No Advance Directives: No Advance Directives Information Provided: No Advance Directives on File: No Recently lost weight without trying: No Eating poorly because of decreased appetite: No Nutrition Risks: No Nutritional Risk Poor oral hygiene: No service: No Current occupational status: employed Meds Allergies Allergy/AdvReac Type Severity Reaction Status Date / Time No Known Allergies Allergy Verified 06/05/22 09:28 [No Known Allergies*] Home Medications Medication Instructions Recorded Confirmed Last Taken Type cholecalciferol (vitamin D3) 50 50 mcg PO DAILY 10/09/20 06/18/22 Unknown History mcg (2,000 unit) capsule melatonin 5 mg capsule 5 mg PO BEDTIME PRN Sleep 09/17/21 06/18/22 Unknown History Exam Exam Date and Time: June 23, [id number] Height,Weight and Vital Signs: Height 5 ft 2 in Weight 64.864 kg Narrative Narrative: EKG 04/2022 sinus bradycardia at 46/Min; nonspecific ST-T changes; normal DE and corrected QT Assessment and Plan Assessment Anesthesia Assessment: Chart Reviewed Final Anesthetic Review Family History of Problems with Anesthesia: No History of Problems with Anesthesia: No Documented by User: Graciela Luna MD 06/24/22 10:29 [facility] Past Medical History Medical History Abnormal mammogram of left breast 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 Family history of breast cancer in first degree relative Menopause On beta laura at home Paroxysmal atrial fibrillation Positive FIT (fecal immunochemical test) Vaginal mass Family History Family History Father Diabetes mellitus Sister Breast cancer, Onset Age: 49 Sister Thyroid cancer Daughter Breast cancer, Onset Age: 28 Surgical History Surgical History History of lumpectomy of left breast Hx of colonoscopy Social History Social History Household Members: Family Housing: House Are you a primary clinical care coordinator to a significant other at home: No Do you presently have visiting nurse or other home services: No Alcohol intake: never Patient Tobacco Use Status: Never used Tobacco e-Cigarette/Vaping Use: Never Used Use of substances other than those prescribed or required for medical reasons: No Have you been hit, kicked, punched, or otherwise hurt by someone within the past year? If so, by whom?: No Are you DNR?: No Advance Directives: No Advance Directives Information Provided: No Advance Directives on File: No Recently lost weight without trying: No Eating poorly because of decreased appetite: No Nutrition Risks: No Nutritional Risk Poor oral hygiene: No service: No Current occupational status: employed Meds Allergies Allergy/AdvReac Type Severity Reaction Status Date / Time No Known Allergies Allergy Verified 06/05/22 09:28 [No Known Allergies*] Home Medications Medication Instructions Recorded Confirmed Last Taken Type cholecalciferol (vitamin D3) 50 50 mcg PO DAILY 10/09/20 06/18/22 Unknown History mcg (2,000 unit) capsule melatonin 5 mg capsule 5 mg PO BEDTIME PRN Sleep 09/17/21 06/18/22 Unknown History Exam Height,Weight and Vital Signs: Height 5 ft 2 in Weight Vital Signs Temp Pulse Resp BP Pulse Ox O2 Del Method 97.7 F 55 16 131/63 100 06/24/22 08:10 06/24/22 08:10 06/24/22 08:10 06/24/22 08:10 06/24/22 08:10 06/24/22 08:10 64.864 kg Airway Mallampati Class: II TM Dist: >3cm Neck ROM: Full Loose/Missing/Broken Teeth: No Heart: RRR Lungs: CTAB Assessment and Plan Assessment Anesthesia Assessment: Anesthesia Plan Discussed Final Anesthetic Review NPO: Yes ASA Class: II Final Preanesthetic Review: No Changes in Pt Med Stat, Meds/Allgs Chart Reviewed, Consent Obtained/Reviewed and Anes Risks/Benef Reviewed Patient Risk: Low Procedure Risk: Low Assessment/Block/Sedation in SS: Assess/Block/Sedation-SS Anesthetic Plan Anesthetic Plan: GA Disposition: Standard PACU
[2022-06-24] VITALS (7 sets, daily range): BP systolic 114–131; BP diastolic 48–63; PULSE 55–70; RESP 10–16; TEMP 36.1–36.5; O2SAT 100
[2022-06-24] MEDS: Lactated Ringers 1,000 ML 100 ML IVCONT (08:25)
--- NOTE | 2022-06-24 08:46 | MHC.SHP ---
Pre-Procedural Eval Section A Date of Service: 06/24/22 The patient is an INPATIENT: No Changes since office visit: Yes Cold of Flu in the past 2 weeks The History & Physical has been completed within 30 days and I have reviewed it.: Yes Section B Chief Complaint: Intraductal carcinoma in situ of left breast Allergies: Allergies Allergy/AdvReac Type Severity Reaction Status Date / Time No Known Allergies Allergy Verified 06/05/22 09:28 [No Known Allergies*] Plan I have reviewed the history and physical and performed a pertinent physical examination on my patient. No changes have occurred unless specified.
--- NOTE | 2022-06-24 10:03 | W.PM.OPN ---
Operative Note Operative Note Date of Service: 06/24/22 Narrative: Preop diagnosis: DCIS, left breast Postop diagnosis: DCIS, left breast Procedure: Re-excision for wider margins, left breast Surgeon: Harley Hameed MD mechanic's assistant: MARI Johnson The patient is a 67-year-old female who had previously undergone lumpectomy for atypical ductal hyperplasia. How ever, the final path report showed DCIS, at the lateral margins. I therefore explained to her that we needed to proceed with re-excision for wider margins. I explained the technique of this procedure. I reviewed the risks, benefits, and alternatives and she had given consent. She was brought to the operating room and placed supine under general anesthesia via laryngeal mask airway. The left breast was prepped and draped in the usual sterile fashion. A surgical time-out was done. The patient received cefazolin 2 g IV preoperatively I infiltrated the planned line of incision. I made the incision on the skin along the previous lumpectomy site, blade 15. This was carried down through the full-thickness of the skin and subcutaneous fat. I then used the curved Palafox scissors to divide tissue along the previous lumpectomy scar, favoring the lateral aspect of this previous excision cavity. We followed the op changes are guide and there was a hematoma as well that was seen within the previous cavity. I continued to dissect around this area more lateral to the excision site using curved Palafox until this area was excised. This was sent as a specimen. I had marked the lateral margins of the specimen with sutures for orientation. I removed more lateral margins and this was sent as a 2nd specimen I copies irrigated. I observed for hemostasis. Once hemostasis was confirmed, I reapposed deeper breast tissue using Dexon 3-0 interrupted sutures. Skin closure was achieved using Dexon 4-0 subcuticular running sutures. Steri-Strips and dressings were applied. The incision was infiltrated with Marcaine 0.5% for postop analgesia. The procedure was completed The patient tolerated procedure well. There were no immediate complications. Initial and final counts of sponges and instruments were correct. Estimated blood loss was about 20 cc The patient was extubated without difficulty and transferred to the recovery room with stable vital signs.
[2022-06-24] MEDS: Acetaminophen 325 MG TABLET 650 MG PO (10:53)
[2022-06-24] MEDS: oxyCODONE HCl Immed Release 5 MG TABLET PO (10:54)
== END 2022-06-24 12:03 | disposition home or self-care (01) ==
PROVIDERS: PCP Internal Medicine; Visit Provider Surgery
PROC: (CPT 19120; principal; 2022-06-24 09:10)
DX: D05.12 Intraductal carcinoma in situ of left breast (principal); I48.0 Paroxysmal atrial fibrillation; Z79.899 Other long term (current) drug therapy
CPT/HCPCS: 19301; 88307; J0690; J1100; J2250; J2405; J2795; J3010

== ENCOUNTER → 2022-07-02 08:00 | Outpatient (BNV) | payer MEDICARE, SELFPAY | PROVIDERS: PCP Internal Medicine; Referring Provider Surgery; Visit Provider Internal Medicine | DX: D05.12 Intraductal carcinoma in situ of left breast (principal) | CPT/HCPCS: 99204; 99213; 99214; G2211 ==

== ENCOUNTER 2022-07-24 08:56 | Outpatient (REF) | payer MEDICARE, SELFPAY ==
--- NOTE | ~2022-07-24 | MM_ITS ---
EXAMINATION: MM DIAGNOSTIC DIGITAL BREAST TOMOSYNTHESIS, LEFT CLINICAL INFORMATION: Left stereotactic biopsy 03/14/2022 (ADH involving sclerosing adenosis with microcalcifications and focal radial scar formation). Upgrade to DCIS on excisional biopsy 05/23/2022. COMPARISON: Mammography: 05/23/2022, 03/14/2022, 02/12/2022, 07/29/2021, 01/25/2021, 01/22/2021, 08/31/2018, and remote mammography 05/25/2007. TECHNIQUE: Digital breast tomosynthesis is performed in both the craniocaudal and mediolateral oblique views along with computer-aided detection (CAD). Synthesized 2D images are generated from the tomosynthesis. Additional views are obtained: Exaggerated CC, magnification CC, magnification ML x2. FINDINGS: There are scattered areas of fibroglandular density (ACR BI-RADS breast composition Category b). There are postsurgical changes with moderate scarring mid 12:00 position. Dermal lesion again noted posterior inferior breast. There are numerous chronic fine calcifications upper and lower quadrants and extending towards the subareolar region dating back to 2006. Results are provided to the patient at time of visit by the technologist. MM/MM tomosynthesis diagnostic LT IMPRESSION: -Postsurgical changes. -Numerous chronic fine calcifications upper and lower quadrants dating back to 2006. ASSESSMENT: BI-RADS 6: Known Biopsy-Proven Malignancy RECOMMENDATION: Continue with management plans for treatment known left breast DCIS.
== END 2022-07-24 08:57 | disposition home or self-care (01) ==
LOC: HO.MAMMO 08:56
PROVIDERS: PCP Internal Medicine; Visit Provider Radiology Radiation Oncology
DX: D05.12 Intraductal carcinoma in situ of left breast (principal)
CPT/HCPCS: 77061; 77065

== ENCOUNTER → 2022-10-20 08:53 | Outpatient (BNVA) | payer MEDICARE, SELFPAY | PROVIDERS: PCP Internal Medicine; Referring Provider Internal Medicine; Visit Provider Internal Medicine | DX: I48.0 Paroxysmal atrial fibrillation (principal); R00.1 Bradycardia, unspecified; Z51.81 Encounter for therapeutic drug level monitoring; Z79.899 Other long term (current) drug therapy | CPT/HCPCS: 93005; 99212 ==

== ENCOUNTER 2023-01-29 08:10 | Outpatient (REF) | payer MEDICARE, SELFPAY ==
--- NOTE | ~2023-01-29 | MM_ITS ---
EXAMINATION: BONE DENSITOMETRY CLINICAL INDICATION: Osteopenia. COMPARISON: Previous BD dated 01/22/2021 and baseline BD dated 08/31/2018. TECHNIQUE: Using a [employer] DXA System (software version: 13.1) manufactured by [employer], dual-energy x-ray absorptiometry was performed of the lumbar spine and left hip. The images are of good technical quality. Summary results are attached. FINDINGS: LEFT FEMUR, NECK: Current: BMD 0.789 g/cm2, Z-score -0.2, T-score -1.8, osteopenia. Prior: BMD 0.787 g/cm2. Baseline: BMD 0.816 g/cm2. LEFT FEMUR, TOTAL: Current: BMD 0.915 g/cm2, Z-score 0.6, T-score -0.7, normal, 2.0% decrease from previous, 3.5% decrease from baseline (<5% change is not significant). Prior: BMD 0.934 g/cm2. Baseline: BMD 0.948 g/cm2. AP SPINE L1-L4: Current: BMD 1.365 g/cm2, Z-score 3.2, T-score 1.5, normal, 0.5% increase from previous, 1.6% increase from baseline (<5% change is not significant). Prior: BMD 1.358 g/cm2. Baseline: BMD 1.344 g/cm2. IDENTIFIED RISK FACTORS: Menopause. HISTORY OF FRACTURE: None listed. MEDICATIONS: Vitamin D. MM/XR DEXA axial skeleton IMPRESSION: 1. DIAGNOSIS: Osteopenia based on the lowest T-score value of -1.8 in the femoral neck applying World Health Organization criteria. 2. 10-YEAR FRACTURE RISK PREDICTION, FRAX: Major osteoporotic fracture (clinical spine, forearm, hip or shoulder) 10.4%. Hip fracture 1.5%. 3. Treatment Recommendations: NOF guidelines recommend consideration for treatment in postmenopausal women and men age 50 and older presenting with the following: -A hip or vertebral (clinical or morphometric) fracture. -T-score less than or equal to -2.5 at the femoral neck or spine after appropriate evaluation to exclude secondary causes. -Low bone mass at the hip or spine and a 10-year fracture probability by FRAX of greater than or equal to 3% for hip fracture or greater than or equal to 20% for major osteoporotic fracture based on the [place] adapted WHO algorithm. 4. Other Recommendations: All treatment decisions require clinical judgment and consideration of individual patient factors, including patient preferences, comorbidities, previous drug use, risk factors not captured in the FRAX model (e.g. frailty, falls, vitamin D deficiency, increased bone turnover, interval significant decline in bone density) and possible under or overestimation of fracture risk by FRAX. Additional medical evaluation for secondary cause of low bone mineral density may be appropriate. FUTURE SCAN RECOMMENDATION: People with diagnosed cases of osteoporosis or at high risk for fracture should have regular bone mineral density tests. For patients eligible for Medicare, routine testing is allowed once every 2 years. The testing frequency can be increased to one year for patients who have rapidly progressing disease, those who are receiving or discontinuing medical therapy to restore bone mass, or have additional risk factors.
== END 2023-01-29 08:11 | disposition home or self-care (01) ==
LOC: HO.MAMMO 08:10
PROVIDERS: PCP Internal Medicine; Visit Provider Internal Medicine
DX: Z13.820 Encounter for screening for osteoporosis (principal); M85.80 Other specified disorders of bone density and structure, unspecified site; Z78.0 Asymptomatic menopausal state
CPT/HCPCS: 77080

== ENCOUNTER 2023-03-13 08:24 | Outpatient (REF) | payer MEDICARE, SELFPAY ==
--- NOTE | ~2023-03-13 | MM_ITS ---
EXAMINATION: MM DIAGNOSTIC DIGITAL BREAST TOMOSYNTHESIS, BILATERAL CLINICAL INFORMATION: History radial scar upgraded to DCIS left breast May 2022, status post surgical lumpectomy and treatment. Establishing new baseline. Patient also has history of excisional biopsy right breast 12:00 axis. COMPARISON: Mammography: 07/24/2022, 08/14/2021, 07/29/2021, 01/25/2021, 01/22/2021, 08/31/2018. TECHNIQUE: Digital breast tomosynthesis is performed in both the craniocaudal and mediolateral oblique views along with computer-aided detection (CAD). Synthesized 2D images are generated from the tomosynthesis. In addition to standard views, spot magnification left CC and ML views were performed of the left breast at the surgical site, upper, slightly outer aspect. FINDINGS: There are scattered areas of fibroglandular density (ACR BI-RADS breast composition Category b). Focal scarring and parenchymal distortion in the upper slightly outer left breast, mid to posterior one third is present, consistent with post treatment related changes. There are no definite residual calcifications, nor are there are developing suspicious or aggressive appearing calcifications. There is a skin lesion in the inferior left breast far lateral aspect consistent with a mole. There is a stable region of parenchymal distortion in the central superior right breast consistent with postoperative scarring. There are associated scattered loosely grouped benign appearing calcifications which are unchanged. There has been no aggressive change. The parenchymal pattern is unchanged from prior exams in the right breast. MM/MM tomosynthesis diagnostic BI IMPRESSION: Post treatment related changes left breast upper outer quadrant, as expected. No findings suspicious for malignancy in either breast. Stable benign findings related to prior excisional biopsy right breast. ASSESSMENT: BI-RADS BI-RADS 2 - Benign Findings RECOMMENDATION: 1 year F/U Results were provided to the patient at time of visit by the technologist. This patient's information was entered into a reminder system with a target due date for their next mammogram.
== END 2023-03-13 08:25 | disposition home or self-care (01) ==
LOC: HO.MAMMO 08:24
PROVIDERS: PCP Internal Medicine; Visit Provider Internal Medicine
DX: Z85.3 Personal history of malignant neoplasm of breast (principal)
CPT/HCPCS: 77062; 77066

== ENCOUNTER → 2023-03-13 08:30 | Outpatient (BNV) | payer MEDICARE, SELFPAY | PROVIDERS: PCP Internal Medicine; Visit Provider Radiology Diagnostic Radiology | DX: Z85.3 Personal history of malignant neoplasm of breast (principal) | CPT/HCPCS: 77062; 77066 ==

== ENCOUNTER 2023-05-25 10:02 | Outpatient (AMB) | payer MEDICARE, SELFPAY ==
--- NOTE | 2023-05-25 10:08 | A.OFFVIS_ITS ---
Intake Vital Signs 05/25/23 10:09 Height 5 ft 2 in Weight 142 lb 13.753 oz BMI 26.1 BP 122/70 Blood Pressure Location Lt brachial Position Sitting Pulse 46 L Intake Visit Reasons: 6 month follow up Intake Note: 6 month follow up w/ EKG Sound Technician Supervisor Required: No Accompanied by: Self / Same As Patient Allergies No Known Allergies [No Known Allergies*] Allergy (Verified 05/25/23 10:13) Medication List - Last Reconciled 05/25/23 by Rafael Cummins MD cholecalciferol (vitamin D3) 50 mcg PO DAILY flecainide 50 mg PO BID ibuprofen 600 mg PO Q6H PRN letrozole 2.5 mg PO DAILY metoprolol tartrate 12.5 mg (1/2 x 25 mg) PO BID HPI HPI Comments History of Present Illness Details Regine returns for follow-up regarding atrial fibrillation. Symptoms are well controlled on a combination of flecainide and metoprolol. She has had absolutely no palpitations or any other cardiac symptoms. Recently had foot surgery and hence walking with a crutch. 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 Abnormal mammogram of left breast Vaginal mass On beta laura at home Positive FIT (fecal immunochemical test) Family history of breast cancer in first degree relative Menopause Paroxysmal atrial fibrillation Surgical History History of lumpectomy of left breast Hx of colonoscopy Family History Father Diabetes mellitus Sister Breast cancer, Onset Age: 49 Sister Thyroid cancer Daughter Breast cancer, Onset Age: 28 Social History Household Members: Family Housing: House Are you a primary animal care worker to a significant other at home: No Do you presently have visiting nurse or other home services: No Alcohol intake: never Patient Tobacco Use Status: Never used Tobacco e-Cigarette/Vaping Use: Never Used service: No Current occupational status: employed Female Reproductive History Menstrual Age of Menarche: 12 Review of Systems Const Denies weakness ENT Denies dizziness Card Denies chest pain, Denies chest pain with activity, Denies syncope, Denies rapid heart rate, Denies pedal edema, Denies edema, Denies leg edema, Denies lightheadedness, Denies palpitations, Denies dyspnea, Denies dyspnea on exertion and Denies orthopnea Resp Denies cough, Denies dyspnea and Denies dyspnea on exertion GI Denies hematochezia and Denies change in stool character Musc Denies abnormal gait, Denies muscle cramps, Denies muscle weakness, Denies numbness, Denies radiating pain into limb and Denies tingling Neuro Denies abnormal gait, Denies dizziness, Denies syncope, Denies numbness, Denies tingling and Denies weakness Endo Denies palpitations Physical Exam Vital Signs: Last Vital Signs Pulse 46 L 05/25/23 10:09 BP 122/70 05/25/23 10:09 BMI result Body Mass Index 26.1 Const General: comfortable and no acute distress Orientation/consciousness: patient oriented x3 HEENT Other: Unremarkable Head: Yes normal to inspection Neck Neck: Yes normal visual inspection Chest Chest palpation & inspection: normal inspection of the chest Resp Auscultation: clear to auscultation bilaterally Cardio Palpation: normal PMI Heart sounds: S1 normal heart sound present, S2 normal heart sound present, no gallops, no murmurs and no rubs GI Palpation (GI): Soft to palpation Back/Spine/Pelvis Other: unremarkable Skin General skin exam: no rashes or lesions noted Neuro General: patient oriented x3 Extrem General: Yes normal to inspection Psych Mental Status: mental status grossly normal Office Procedures EKG Details: EKG with sinus bradycardia at 46/Min; no significant ST-T changes and otherwise [place]remarkable. [place] [id number], Complete Results Reviewed Results Reviewed: Holter-09/2020 Basic rhythm Normal sinus rhythm No long pause or profound bradycardia Frequent Sinus bradycardia Rare Premature atrial complexes No sustained Atrial fibrillation Patient did not report any symptoms in the diary Echocardiogram -2019 LVEF 60-65%; mild mitral and tricuspid regurgitation Myocardial perfusion imaging -2019 Normal perfusion without any ischemia or infarction Assessment & Plan Assessment & Plan (1) Paroxysmal atrial fibrillation: Code(s): I48.0 - Paroxysmal atrial fibrillation (2) Sinus bradycardia: Code(s): R00.1 - Bradycardia, unspecified (3) Encounter for monitoring anti-arrhythmic therapy: Code(s): Z51.81 - Encounter for therapeutic drug level monitoring; Z79.899 - Other nursing home (current) drug therapy Plan Stable on the current combination of Flecainide and low-dose metoprolol. She does have bradycardia but no symptoms from this and unlimited exercise tolerance. Hence we will continue to monitor her. Proarrhythmic risks from flecainide also discussed. She has not had any recent atrial fibrillation and hence not on any anticoagulation. Also episodes are far and few and nothing in the last couple of years or so. However, she has any further atrial fibrillation likely to start. Follow-up 6 months. Orders: Orders CA echo transthoracic complete 6 Months I48.0 - Paroxysmal atrial fibrillation ECG 3 day holter monitor 6 Months I48.0 - Paroxysmal atrial fibrillation Medications: Changed From letrozole 2.5 mg PO DAILY 60 tabs 3RF To letrozole 2.5 mg PO DAILY Coding Level of Care Code Est Pt Level 4 (55970) Diagnoses Paroxysmal atrial fibrillation I48.0 Sinus bradycardia R00.1 Encounter for monitoring anti-arrhythmic therapy Z51.81; Z79.899 CPT Codes EKG - CPT: 11453-[id number], Complete ([id number])
[2023-05-25 10:09] VITALS: BP 122/70; PULSE 46; BMI 26.1
== END 2023-05-25 10:35 | disposition home or self-care (01) ==
PROVIDERS: Visit Provider Internal Medicine
DX: I48.0 Paroxysmal atrial fibrillation (principal); R00.1 Bradycardia, unspecified; Z51.81 Encounter for therapeutic drug level monitoring; Z79.899 Other long term (current) drug therapy
CPT/HCPCS: 93010; 99214

== ENCOUNTER → 2023-05-25 10:02 | Outpatient (BNVA) | payer MEDICARE, SELFPAY | PROVIDERS: Visit Provider Internal Medicine | DX: I48.0 Paroxysmal atrial fibrillation (principal); R00.1 Bradycardia, unspecified; Z79.899 Other long term (current) drug therapy | CPT/HCPCS: 93005; 99212 ==

== ENCOUNTER 2023-10-15 09:00 | Outpatient (RCR) | payer MEDICARE, SELFPAY ==
--- NOTE | 2023-10-02 09:47 | MHC.PT.EP ---
[facility] [place] [facility] [place] [facility] [place] [facility] [address] [phone] F: [phone] F: [phone] F: [phone] F: [phone] Physical Therapy Plan of Care Date of Evaluation: 10/02/23 Date of Surgery: Diagnosis: Pain in lower extremity due to sciatica Assessment: Patient is a 68 year old R handed female who presents with s/s consistent with LE pain related to sciatica. S/s present similarly to piriformis syndrome. She does not currently work but likes to stay active and go for walks. Patient past medical history includes breast cancer and L bunionectomy in the fall of 2022. Current impairments include pain, flexibility, ROM, strength, activity tolerance and functional mobility. Functional limitations include decreased ability to walk, stand, perform longer duration standing activities and sleep. Patient is motivated with good rehab potential. Skilled PT will address impairments and functional limitations in order to achieve goals. Frequency and Duration: The patient will be seen 2x/week for 5 weeks Short Term Goals: I with HEP - 2 weeks TTP absent in R piriformis - 3 weeks s/s centralized - 3 weeks Intermediate Goals: symmetrical gait - no trendelenberg - 5 weeks hip strength 4+/5 grossly - 5 weeks max pain 2/10 with ADLs - 5 weeks Oswestry 10% or better - 5 weeks Treatment Plan: Modalities to reduce pain, spasms and effusion. Manual therapy to restore motion and function. Therapeutic exercise to improve strength and flexibility. Neuromuscular re-education for posture and balance. Therapeutic activities to return to functional activities of daily living. Electronically signed by: Demetrio Ortiz, PT Please sign and return to therapist. Thank you for your referral.
--- NOTE | 2024-03-31 11:06 | MHC.PT.DC ---
[facility] [place] [facility] [place] [facility] [place] [facility] [address] Corinne Stuart [address] [phone] F: [phone] F: [phone] F: [phone] F: [phone] Physical Therapy Discharge Report Diagnosis: Pain in lower extremity due to sciatica Date of Surgery: Date of Evaluation: 10/02/23 Date of Discharge: 12/12/23 Treatments to Date: 3 Cancellations to Date: No Shows to Date: Discharge Status: Achieved Goals Independent with HEP Discharge Summary: 10/15/23: pt progressed well. I with HEP. ttp less. s/s centralized. max pain with ADLs 2/10. Oswestry 20%. She would like to continue with HEP at this time and feels like she is able to manage s/s independently since she has been able to appreciate progress. we will d/c to HEP at this time. 10/04: Patient with reported weakness at the hip. Educated on posture standing YTB exercises as she tends to rotate at the trunk. Reviewed HEP and needed some cues with this as well, she was performing the piriformis stretch in the opp direction but was not getting any increase in pain. Updated her HEP with ed on performance and pain management. Patient is a 68 year old R handed female who presents with s/s consistent with LE pain related to sciatica. S/s present similarly to piriformis syndrome. She does not currently work but likes to stay active and go for walks. Patient past medical history includes breast cancer and L bunionectomy in the fall of 2022. Current impairments include pain, flexibility, ROM, strength, activity tolerance and functional mobility. Functional limitations include decreased ability to walk, stand, perform longer duration standing activities and sleep. Patient is motivated with good rehab potential. Skilled PT will address impairments and functional limitations in order to achieve goals. Electronically signed by: Demetrio Ortiz, PT Please sign and return to therapist. Thank you for your referral.
== END 2024-03-31 11:07 | disposition home or self-care (01) ==
LOC: HO.PTCHIC 09:00
PROVIDERS: PCP Internal Medicine; Visit Provider Internal Medicine
DX: M54.30 Sciatica, unspecified side (principal)
CPT/HCPCS: 97110; 97140; 97162

== ENCOUNTER → 2023-11-09 07:56 | Outpatient (REF) | payer MEDICARE, SELFPAY ==
--- NOTE | 2023-11-09 08:01 | HM_ITS ---
Conclusion: 1. Patient was monitored for total period of 3 days 2. Baseline was normal sinus rhythm with average heart of 58 beats per minute 3. No significant pauses noted but frequent sinus bradycardia noted with 57% of time heart rate below 60 beats per minute 4. Frequent PVCs noted with total burden of 12.6% with no significant ventricular tachyarrhythmias 5. Frequent PACs noted with total burden of 1.4% 6. No patient reported events MTDD
--- NOTE | 2023-11-09 08:01 | HM_ITS ---
Conclusion: 1. Patient was monitored for total period of 2 days and 23 hours 2. Baseline was normal sinus rhythm with average heart of 60 beats per minute 3. No significant pauses noted but frequent sinus bradycardia noted with 55% of time heart rate below 60 beats per minute 4. Rare ectopy noted 5. No patient reported events MTDD
--- NOTE | 2023-11-09 08:01 | CA_ITS ---
Transthoracic Echocardiogram Patient (Last, First, Middle): Regine Morales, Gender: Female Date of : 1955 Age: 68 Procedure Date: 11/09/2023 Procedure Type: Transthoracic Echocardiogram Location: OP Height: 157.48 cm Weight: 63.5 kg BSA: 1.64 m2 Heart Rate: bpm BP: 120 / 68 mmHg Visiting Teacher: ALONZO Referring MD: Rafael Cummins MD [employer] Supervisor: Mateo Rudd MD Symptoms: I48.0 - Paroxysmal atrial fibrillation Study Quality: Adequate ECG Rhythm: Sinus Conclusions: - 1. Normal LV systolic function with normal filling pattern 2. Trace aortic and mild mitral regurgitation 3. Normal measured RV systolic pressure 4. No gross pericardial effusion Findings Left Ventricle Normal left ventricular size, thickness, and systolic function. The visually estimated ejection fraction is between 60-65%. Spectral Doppler is indicative of a normal filling pattern. Peak GLS is -22.7%, within normal limits. Right Ventricle The right ventricle was not well visualized. There is normal right ventricular systolic function. Atria The left atrium is normal in size. Interatrial shunt cannot be excluded. The right atrium was not well visualized. Aortic Valve Normal aortic valve structure and function. There is no aortic valve stenosis. There is trace (trivial) aortic valve regurgitation. Mitral Valve There is mild anterior and posterior mitral leaflet thickening. There is mild mitral valve regurgitation. There is no mitral valve stenosis. Pulmonic Valve The pulmonic valve was not well visualized. Tricuspid Valve Likely normal tricuspid valve structure and function. There is mild tricuspid valve regurgitation. The right ventricular systolic pressure is normal. The right ventricular systolic pressure is 29 mmHg. Normal right atrial pressure. There is no evidence of pulmonary hypertension. Great Vessels The aorta was not well visualized. The pulmonary artery was not well visualized. Venous The inferior vena cava is normal in size and collapses greater than 50% with inspiration. Pericardium/Pleural There is no evidence of pericardial effusion. Prior Study Comparison No significant change compared to prior study dated: 03/08/2019. Measurements 2D Linear Measurements IVSd: 0.74 0.6-0.9/0.6-1.0 cm LVIDd: 4.61 3.9-5.3/4.2-5.9 cm LVIDd Index: 2.81 2.4-3.2/2.2-3.1 cm/m2 LVIDs: 2.77 2.0-3.6 cm LVPWd: 0.82 0.7-1.1 cm LA Diam: 3.40 2.7-3.8/3.0-4.0 cm LAIDs Index: 2.07 1.5-2.3 cm/m2 LV Mass: 143.10 67-162/88-224 g LV Mass Index: 87.26 43-95/49-115 g/m2 LVOT Diam: 1.80 3.0+(-)1.3 cm 2D Systolic Function EF 4C: 65.90 >55% EF 2C: 62.90 >55% EF BiP: 63.10 >55% Mitral Valve MV Pk E: 0.93 MV PK A: 0.63 MV Decel Time: 179.00 E/A: 1.50 E'Lateral: 8.81 E'Medial: 7.07 E/E' Med: 13.20 E/E' Lat: 10.60 PHT: 52.00 MVA PHT: 4.23 Decel Sherman: 5.23 Aortic Valve AoV Pk Jad: 1.61 AoV Mn Jad: 1.01 AoV VTI: 0.42 AoV Pk Grad: 10.00 Aov Mn Grad: 5.00 SEN Cont.VTI: 1.75 LVOT LVOT Pk Jad: 1.12 LVOT Mn Jad: 0.67 LVOT VTI: 0.29 LVOT Pk Grad: 5.00 LVOT Mn Grad: 2.00 LVOT Diam: 1.80 LVOT Area: 2.54 Diastolic Function MV Pk E: 0.93 MV Pk A: 0.63 E/A: 1.50 E'Medial: 7.07 E/E' Med: 13.20 E' Laterial: 8.81 E/E' Lat: 10.60 Right Ventricle TAPSE (mm): 23.40 TVS' Jad: 12.80 Tricuspid Valve TR Pk Jad: 2.31 TR Pk Grad: 21.00 RA Press: 8.00 RVSP: 29.00 Great Vessels Aorta Sinus of Valsalva: 2.90 2.0-3.5 cm Ao Asc: 3.20 2.1-3.4 cm Ao Arch: 2.80 Updated in Other Vendor System with Status of Final Mateo Rudd MD electronically signed on 11/09/2023 4:42:48 PM with status of Final
== END ==
LOC: HO.CARD 07:56
PROVIDERS: PCP Internal Medicine; Visit Provider Internal Medicine
DX: I48.0 Paroxysmal atrial fibrillation (principal)
CPT/HCPCS: 93242; 93306; 93356

== ENCOUNTER → 2023-11-09 08:01 | Outpatient (BNV) | payer MEDICARE, SELFPAY | PROVIDERS: PCP Internal Medicine; Visit Provider Internal Medicine Cardiovascular Disease | DX: I34.0 Nonrheumatic mitral (valve) insufficiency (principal); I36.1 Nonrheumatic tricuspid (valve) insufficiency | CPT/HCPCS: 93244; 93306; 93356 ==

== ENCOUNTER 2023-11-26 09:23 | Outpatient (AMB) | payer MEDICARE, SELFPAY ==
--- NOTE | 2023-11-26 09:24 | A.OFFVIS_ITS ---
Vital Signs 11/26/23 09:25 Height 5 ft 2 in Weight 141 lb 1.533 oz BMI 25.8 BP 110/62 Blood Pressure Location Lt brachial Position Sitting Pulse 50 Intake Visit Reasons: 6 mth f/up [employer] Operator Required: No Accompanied by: Self / Same As Patient Allergies No Known Allergies [No Known Allergies*] Allergy (Verified 09/28/23 09:46) Medication List - Last Reconciled 11/26/23 by Rafael Cummins MD cholecalciferol (vitamin D3) 50 mcg PO DAILY flecainide 50 mg PO BID ibuprofen 600 mg PO Q6H PRN letrozole 2.5 mg PO DAILY metoprolol tartrate 12.5 mg (1/2 x 25 mg) PO BID HPI Comments Details: Regine returns for follow-up regarding atrial fibrillation. Symptoms are well controlled on a combination of flecainide and metoprolol. No cardiac symptoms whatsoever. 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 Abnormal mammogram of left breast Vaginal mass On beta laura at home Positive FIT (fecal immunochemical test) Family history of breast cancer in first degree relative Menopause Paroxysmal atrial fibrillation Surgical History History of lumpectomy of left breast Hx of colonoscopy Family History Father Diabetes mellitus Sister Breast cancer, Onset Age: 49 Sister Thyroid cancer Daughter Breast cancer, Onset Age: 28 Social History Household Members: Family Housing: House Are you a primary healthcare representative to a significant other at home: No Do you presently have visiting nurse or other home services: No Alcohol intake: never Comment: PAIN IMPROVED Patient Tobacco Use Status: Never used Tobacco e-Cigarette/Vaping Use: Never Used service: No Current occupational status: employed Female Reproductive History Menstrual Age of Menarche: 12 Review of Systems Const All systems reviewed & are unremarkable except as noted in HPI and below Reports as per HPI and Reports no additional complaints Eyes Reports as per HPI and Denies no additional complaints ENT Denies no additional complaints and Reports as per HPI Card Reports as per HPI, Reports no additional complaints, Denies acrocyanosis, Abelino es chest pain, Denies leg edema, Denies lightheadedness, Denies palpitations and Denies dyspnea Resp Reports as per HPI, Denies no additional complaints and Denies dyspnea GI Reports as per HPI and Denies no additional complaints Reports as per HPI Musc Reports no additional complaints and Reports as per HPI Skin/Breast Reports system reviewed and no additional complaints, except as documented Neuro Reports no additional complaints and Reports as per HPI Psych Reports no additional complaints and Reports as per HPI Endo Reports no additional complaints, Reports as per HPI and Denies palpitations Miguel A/Lymph Reports no additional complaints and Reports as per HPI Aller/Immun Reports no additional complaints and Reports as per HPI Physical Exam Vital Signs: Last Vital Signs Pulse 50 11/26/23 09:25 BP 110/62 11/26/23 09:25 BMI result Body Mass Index 25.8 Const General: comfortable and no acute distress Orientation/consciousness: patient oriented x3 HEENT Other: Unremarkable Head: Yes normal to inspection Neck Neck: Yes normal visual inspection Chest Chest palpation & inspection: normal inspection of the chest Resp Auscultation: clear to auscultation bilaterally Cardio Palpation: normal PMI Heart sounds: S1 normal heart sound present, S2 normal heart sound present, no gallops, no murmurs and no rubs GI Palpation (GI): Soft to palpation Back/Spine/Pelvis Other: unremarkable Skin General skin exam: no rashes or lesions noted Neuro General: patient oriented x3 Extrem General: Yes normal to inspection Psych Mental Status: mental status grossly normal Office Procedures EKG Details: EKG with sinus bradycardia at 50/Min; nonspecific ST-[place] [id number], Complete Assessment & Plan Assessment & Plan (1) Paroxysmal atrial fibrillation: Code(s): I48.0 - Paroxysmal atrial fibrillation Category: Medical (2) Sinus bradycardia: Code(s): R00.1 - Bradycardia, unspecified Category: Medical (3) Encounter for monitoring anti-arrhythmic therapy: Code(s): Z51.81 - Encounter for therapeutic drug level monitoring; Z79.899 - Other meterman (current) drug therapy Category: Medical Plan In the recent echocardiogram, LVEF is 60-65%. Normal peak global longitudinal strain. Otherwise unremarkable. Holter with evidence of sinus bradycardia but otherwise unremarkable. Overall, well controlled paroxysmal atrial fibrillation on flecainide and low- dose beta-blockers with no symptoms or other concerns. No recent atrial fibrillation either. Not on anticoagulation due to paucity of episodes and none in the last few years. Follow-up in 6 months. Coding Level of Care Code Est Pt Level 4 (24308) Diagnoses Paroxysmal atrial fibrillation I48.0 Sinus bradycardia R00.1 Encounter for monitoring anti-arrhythmic therapy Z51.81; Z79.899 CPT Codes EKG - CPT: 29269-[id number], Complete ([id number])
[2023-11-26 09:25] VITALS: BP 110/62; PULSE 50; BMI 25.8
== END 2023-11-26 09:40 | disposition home or self-care (01) ==
PROVIDERS: PCP Internal Medicine; Visit Provider Internal Medicine
DX: I48.0 Paroxysmal atrial fibrillation (principal); R00.1 Bradycardia, unspecified; Z51.81 Encounter for therapeutic drug level monitoring; Z79.899 Other long term (current) drug therapy
CPT/HCPCS: 93010; 99214

== ENCOUNTER → 2023-11-26 09:23 | Outpatient (BNVA) | payer MEDICARE, SELFPAY | PROVIDERS: PCP Internal Medicine; Visit Provider Internal Medicine | DX: I48.0 Paroxysmal atrial fibrillation (principal); R00.1 Bradycardia, unspecified; Z51.81 Encounter for therapeutic drug level monitoring; Z79.899 Other long term (current) drug therapy | CPT/HCPCS: 93005; 99212 ==

== ENCOUNTER 2024-04-06 13:23 | Outpatient (REF) | payer MEDICARE, SELFPAY ==
--- NOTE | ~2024-04-06 | MM_ITS ---
EXAMINATION: MM DIAGNOSTIC DIGITAL BREAST TOMOSYNTHESIS, BILATERAL CLINICAL INFORMATION: Postop year 2 status post left breast upper outer lumpectomy for DCIS , upgraded from radial scar on excision, in May 2022. Patient also has history of excisional biopsy right breast 12:00 axis. Due for yearly. COMPARISON: Mammography: 02/21/2023, 07/24/2022, 08/14/2021, 07/29/2021, 01/25/2021, 01/22/2021, 08/31/2018. TECHNIQUE: Digital breast tomosynthesis is performed in both the craniocaudal and mediolateral oblique views along with computer-aided detection (CAD). Synthesized 2D images are generated from the tomosynthesis. In addition to standard views, spot magnification 2-D left CC and ML views were obtained of the lumpectomy site. FINDINGS: There are scattered areas of fibroglandular density (ACR BI-RADS breast composition Category b). Redemonstration of focal scarring and parenchymal distortion with mild scar retraction in the upper slightly outer left breast, mid to posterior one third, consistent with post treatment related changes. There are no definite residual suspicious or recurrent suspicious calcifications. There are a few developing dystrophic appearing calcifications consistent with fat necrosis. There are no developing aggressive appearing calcifications. There are stable retroareolar calcifications which are unchanged from 2019. There is mild retroareolar duct ectasia bilaterally. There is a stable skin lesion in the inferior left breast far lateral aspect. Stable region of parenchymal distortion in the central superior right breast, consistent with postoperative scarring. There are associated scattered loosely grouped benign calcifications which are unchanged. The overall parenchymal pattern is unchanged from prior exams and both breasts. MM/MM tomosynthesis diagnostic BI IMPRESSION: -There are no findings suspicious for malignancy in either breast. -There are essentially stable post-treatment related changes left breast upper slightly outer quadrant. -There are additional benign findings in both breasts which remain unchanged. -Recommend patient continue one year follow-up postoperative protocol. ASSESSMENT: BI-RADS BI-RADS 2 - Benign Findings RECOMMENDATION: 1 year F/U Results were provided to the patient at time of visit by the technologist. This patient's information was entered into a reminder system with a target due date for their next mammogram. Electronically signed by: Kevin Plaza MD 04/06/2024 04:00 PM EDT RP
== END 2024-04-06 13:24 | disposition home or self-care (01) ==
LOC: HO.MAMMO 13:23
PROVIDERS: PCP Internal Medicine; Visit Provider Internal Medicine
DX: D05.12 Intraductal carcinoma in situ of left breast (principal)
CPT/HCPCS: 77062; 77066

== ENCOUNTER → 2024-04-06 13:30 | Outpatient (BNV) | payer MEDICARE, SELFPAY | PROVIDERS: PCP Internal Medicine; Visit Provider Radiology Diagnostic Radiology | DX: D05.12 Intraductal carcinoma in situ of left breast (principal) | CPT/HCPCS: 77066; G0279 ==

== ENCOUNTER 2024-06-06 09:14 | Outpatient (AMB) | payer MEDICARE, SELFPAY ==
[2024-06-06 09:23] VITALS: BP 118/60; PULSE 49; BMI 25.8
--- NOTE | 2024-06-06 09:23 | MHC.OFFVIS ---
Vital Signs 06/06/24 09:23 Height 5 ft 2 in Weight 141 lb 1.533 oz BMI 25.8 BP 118/60 Blood Pressure Location Lt brachial Position Sitting Pulse 49 L Pulse Source Monitor Intake Visit Reasons: 6m follow up Allergies No Known Allergies [No Known Allergies*] Allergy (Verified 04/14/24 08:59) Medication List - Last Reconciled 06/06/24 by Rafael Cmumins MD cholecalciferol (vitamin D3) 50 mcg PO DAILY flecainide 50 mg PO BID ibuprofen 600 mg PO Q6H PRN letrozole 2.5 mg PO DAILY metoprolol tartrate 12.5 mg (1/2 x 25 mg) PO BID HPI Comments Details: Regine returns for follow-up regarding atrial fibrillation. She remains on flecainide and metoprolol. Overall, she is doing good. No complaints whatsoever. 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 Abnormal mammogram of left breast Vaginal mass On beta laura at home Positive FIT (fecal immunochemical test) Family history of breast cancer in first degree relative Menopause Paroxysmal atrial fibrillation Surgical History History of lumpectomy of left breast Hx of colonoscopy Family History Father Diabetes mellitus Sister Breast cancer, Onset Age: 49 Sister Thyroid cancer Daughter Breast cancer, Onset Age: 28 Social History Household Members: Family Housing: House Are you a primary intensive care unit nurse to a significant other at home: No Do you presently have visiting nurse or other home services: No Alcohol intake: never Comment: PAIN IMPROVED Patient Tobacco Use Status: Never used Tobacco e-Cigarette/Vaping Use: Never Used service: No Current occupational status: employed Female Reproductive History Menstrual Age of Menarche: 12 Review of Systems Const Denies weakness ENT Denies dizziness Card Denies chest pain, Denies chest pain with activity, Denies syncope, Denies rapid heart rate, Denies pedal edema, Denies edema, Denies leg edema, Denies lightheadedness, Denies palpitations, Denies dyspnea, Denies dyspnea on exertion and Denies orthopnea Resp Denies cough, Denies dyspnea and Denies dyspnea on exertion GI Denies hematochezia and Denies change in stool character Musc Denies abnormal gait, Denies muscle cramps, Denies muscle weakness, Denies numbness, Denies radiating pain into limb and Denies tingling Neuro Denies abnormal gait, Denies dizziness, Denies syncope, Denies numbness, Denies tingling and Denies weakness Endo Denies palpitations Physical Exam Vital Signs: Last Vital Signs Pulse 49 L 06/06/24 09:23 BP 118/60 06/06/24 09:23 BMI result Body Mass Index 25.8 Const General: comfortable and no acute distress Orientation/consciousness: patient oriented x3 HEENT Other: Unremarkable Head: Yes normal to inspection Neck Neck: Yes normal visual inspection Chest Chest palpation & inspection: normal inspection of the chest Resp Auscultation: clear to auscultation bilaterally Cardio Palpation: normal PMI Heart sounds: S1 normal heart sound present, S2 normal heart sound present, no gallops, no murmurs and no rubs GI Palpation (GI): Soft to palpation Back/Spine/Pelvis Other: unremarkable Skin General skin exam: no rashes or lesions noted Neuro General: patient oriented x3 Extrem General: Yes normal to inspection Psych Mental Status: mental status grossly normal Office Procedures EKG Details: EKG shows sinus bradycardia at 49/Min; no significant ST-T changes; [place]. [id number], Complete Assessment & Plan Assessment & Plan (1) Paroxysmal atrial fibrillation: Code(s): I48.0 - Paroxysmal atrial fibrillation Category: Medical (2) Sinus bradycardia: Code(s): R00.1 - Bradycardia, unspecified Category: Medical (3) Encounter for monitoring anti-arrhythmic therapy: Code(s): Z51.81 - Encounter for therapeutic drug level monitoring; Z79.899 - Other director long term care (current) drug therapy Category: Medical Plan In the last echocardiogram, LVEF is 60-65%. Normal peak global longitudinal strain. Otherwise unremarkable. Holter with evidence of sinus bradycardia, but otherwise unremarkable. Overall, patient is stable on the current dose of flecainide/beta-blockers. Has not had any episodes in few years. Also, not on anticoagulation due to very infrequent and also short-lived episodes. Anticoagulation indication will need to be periodically evaluated. We will follow-up within 6 months with EKG. She will call us if any concerns in the interim. Coding Level of Care Code Est Pt Level 4 (63701) Diagnoses Paroxysmal atrial fibrillation I48.0 Sinus bradycardia R00.1 Encounter for monitoring anti-arrhythmic therapy Z51.81; Z79.899 CPT Codes EKG - CPT: 23537-[id number], Complete ([id number])
== END 2024-06-06 09:45 | disposition home or self-care (01) ==
PROVIDERS: PCP Internal Medicine; Visit Provider Internal Medicine
DX: I48.0 Paroxysmal atrial fibrillation (principal); R00.1 Bradycardia, unspecified; Z51.81 Encounter for therapeutic drug level monitoring; Z79.899 Other long term (current) drug therapy
CPT/HCPCS: 93010; 99214

== ENCOUNTER → 2024-06-06 09:14 | Outpatient (BNVA) | payer MEDICARE, SELFPAY | PROVIDERS: PCP Internal Medicine; Visit Provider Internal Medicine | DX: I48.0 Paroxysmal atrial fibrillation (principal); R00.1 Bradycardia, unspecified; Z51.81 Encounter for therapeutic drug level monitoring; Z79.899 Other long term (current) drug therapy | CPT/HCPCS: 93005; 99212 ==

== ENCOUNTER 2024-08-17 10:51 | Outpatient (AMB) | payer MEDICARE, SELFPAY ==
--- NOTE | 2024-08-17 11:40 | A.OFFPC_ITS ---
Vital Signs 08/17/24 11:48 Height 5 ft 2 in Weight 142 lb BMI 26.0 BP 136/72 Blood Pressure Location Lt brachial Position Sitting Respiration 14 Pulse 49 L Pulse Source Pulse Oximeter Temp 98.1 F Temp Source Oral Pulse Oximetry (%) 98 Oxygen Delivery Method Room Air Intake Visit Reasons: PE Intake Note: Pt is here today for her PE: last mammogram 04/06/24, bone density scan 01/29/23, colonoscopy 10/10/21 Allergies No Known Allergies [No Known Allergies*] Allergy (Verified 08/17/24 12:32) Medication List - Last Reconciled 08/17/24 by Christal Fofana MD cholecalciferol (vitamin D3) 50 mcg PO DAILY flecainide 50 mg PO BID ibuprofen 600 mg PO Q6H PRN letrozole 2.5 mg PO DAILY metoprolol tartrate 12.5 mg (1/2 x 25 mg) PO BID Tobacco use date assessed: 08/17/24 Fall risk assessment: No Falls in past year Last assessed Fall Risk: 08/17/24 Dental Screening Dental Screen Date: 08/17/24 Did you have a dental visit in the last 12 months?: Yes Did you have a dental problem in the last 6 months where you did not have access to dental care?: No Was dental information given to patient?: Patient has dentist HPI PE HPI Details 69 year old lady with history of DCIS st atus post radiation therapy at [facility] and letrozole in 2021, has osteopenia left femoral neck, paroxysmal atrial fibrillation, and sinus bradycardia, currently followed by Cardiology, on flecainide and metoprolol tartrate, and 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 She is up-to-date with her mammogram, done 04/06/2024, and last bone density scan was done 01/29/2023 which showed osteopenia in left femoral neck, no history of fractures. Last colonoscopy was done 10/10/2021 with 1 hyperplastic polyp and 1 serrated sessile polyp removed, to be repeated again in 2-[address] Thomas. [facility] Medical History (Updated 08/21/24 @ 15:54 by Christal Fofana MD) Flu vaccine refused History of adenomatous polyp of colon Ductal carcinoma in situ (DCIS) of left breast Family history of breast cancer in first degree relative Paroxysmal atrial fibrillation Surgical History History of lumpectomy of left breast Hx of colonoscopy Family History Father Diabetes mellitus Sister Breast cancer, Onset Age: 49 Sister Thyroid cancer Daughter Breast cancer, Onset Age: 28 Social History Household Members: Family Housing: House Are you a primary post acute care nurse to a significant other at home: No Do you presently have visiting nurse or other home services: No Alcohol intake: never Comment: PAIN IMPROVED Patient Tobacco Use Status: Never used Tobacco e-Cigarette/Vaping Use: Never Used service: No Current occupational status: retired Cognitive needs: No Hearing needs: No Vision needs: Yes Female Reproductive History Menstrual Age of Menarche: 12 Menopause type: natural Questionnaire PHQ-9 Over the last 2 weeks, how often have you been bothered by any of the following problems? 1. Little interest or pleasure in doing things: not at all 2. Feeling down, depressed, or hopeless: not at all 3. Trouble falling or staying asleep, or sleeping too much: not at all 4. Feeling tired or having little energy: not at all 5. Poor appetite or overeating: not at all 6. Feeling bad about yourself - or that you are a failure or have let yourself or your family down: not at all 7. Trouble concentrating on things, such as reading the newspaper or watching television: not at all 8. Moving or speaking so slowly that other people could have noticed. Or the opposite - being so fidgety or restless that you have been moving around a lot more than usual: not at all 9. Thoughts that you would be better off or of hurting yourself in some way: not at all Total score: 0 Depression Screening Interpretation: Negative Depression Screening Done: Yes 30885 - PHQ-9 Billing: Yes Source: Developed by Drs. Seb Barry, Geni Sylvester, Addison Jorgensen and colleagues, with an educational duane from [employer]. Thrive Questionnaire Date Thrive assessed: 08/17/24 I am a: Patient What is your living situation today?: I have a steady place to live Within the past 12 months, did the food you bought not last and you didn't have the money to get more?: Never true Within the past 12 months, did you worry whether your food would run out before you got money to buy more?: Never true Do you have trouble paying for medicines?: No Do you have trouble getting transportation to medical appointments?: No Do you have trouble paying your heating and electricity bill?: No Do you have trouble taking care of your child, family member or friend?: No Do you have trouble with day-to-day activities such as bathing, preparing meals, shopping, managing finances, etc.?: No Are you currently unemployed and looking for a job?: No Are you interested in more education?: No Please select the resources that you would like help with: None Currently or been in a relationship where the following occur: No concerns reported THRIVE Score: 0 AUDIT C Alcohol Use Questionnaire (AUDIT-C) 1. How often do you have a drink containing alcohol?: Never 2. How many drinks containing alcohol do you have on a typical day when you are drinking?: 1 or 2 3. How often do you have six or more drinks on one occasion?: Never Total Score: 0 MARIA G-7 AMB Questionnaire MARIA G-7 Date MARIA G - 7 assessed: 08/17/24 Feeling nervous, anxious, or on edge: 0 = Not at all Not being able to stop or control worryin = Not at all Worrying too much about different things: 0 = Not at all Trouble relaxin = Several days Being so restless that it is hard to sit still: 0 = Not at all Becoming easily annoyed or irritable: 0 = Not at all Feeling afraid as if something awful might happen: 0 = Not at all Total MARIA G-7 score (0-4 normal; 5-9 mild; 10-14 moderate; 15-21 severe): 1 Source: Developed by Drs. Seb Barry, Geni Sylvester, Addison Jorgensen and colleagues, with an educational duane from [employer] MARIA G-7 Assessment Billing MARIA G-7 Assessment Tool: MARIA G-7 Assessment 29379 Review of Systems Const Reports no additional complaints Eyes Details: Sees [facility] eye care Reports requires corrective lenses ENT Details: Dental prophylaxis every 6 months Reports Normal hearing present and Denies dizziness Card Denies chest pain, Denies chest pain with activity, Denies syncope, Denies rapid heart rate, Denies pedal edema, Denies edema, Denies leg edema, Denies lighthead edness, Denies palpitations, Denies dyspnea, Denies dyspnea on exertion and Denies orthopnea Resp Denies cough, Denies dyspnea and Denies dyspnea on exertion GI Denies hematochezia and Denies change in stool character Details: [facility] -[employer]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[employer] Reports no additional complaints Musc Denies abnormal gait, Denies muscle cramps, Denies muscle weakness, Denies numbness, Denies radiating pain into limb and Denies tingling Skin/Breast Denies breast pain, Denies breast mass and Denies rash Neuro Reports Normal hearing present, Denies Abnormal speech present, Denies abnormal gait, Denies dizziness, Denies syncope, Denies numbness and Denies tingling Psych Reports no additional complaints Endo Denies palpitations Miguel A/Lymph Reports no additional complaints Aller/Immun Reports no additional complaints Physical exam (Primary Care) Vital Signs: Last Vital Signs Temp 98.1 F 08/17/24 11:48 Pulse 49 L 08/17/24 11:48 Resp 14 08/17/24 11:48 BP 136/72 08/17/24 11:48 Pulse Ox 98 08/17/24 11:48 Oxygen Delivery Method Room Air 08/17/24 11:48 BMI result Body Mass Index 26.0 Tobacco/Smoking Status: Tobacco use Status Tobacco use date assessed 08/17/24 08/17/24 11:43 Patient Tobacco Use Status Never used Tobacco 08/17/24 11:43 e-Cigarette/Vaping Use Never Used 08/17/24 11:43 PHQ-9: PHQ-9 Score PHQ-9: Total score 0 08/21/24 15:47 Depression Screening Interpretation: Negative Thrive Assessment: Date of Thrive Assessment Date Thrive assessed 08/17/24 08/17/24 11:43 Currently or been in a relationship where the following occur: No concerns repor thalia Advance Care Planning discussion: Completed/Scanned Date of discussion: 08/17/24 Who was present: Patient Forms completed: Health Care Proxy Time spent: 16-45 minutes Actual minutes spent: 3 Const General: cooperative, healthy appearing, comfortable and no acute distress Nutritional Appearance: average body habitus Orientation/consciousness: patient oriented x3 Limitations: no limitations HENMT Head: Yes normocephalic and Yes atraumatic Ears: hearing grossly normal bilaterally, external ears normal, TM's normal bilaterally and EAC's normal General nose exam: Normal external nose present, No nasal polyps present and No nasal discharge present Face and sinus: Yes face symmetric Mouth: Normal oral and palatal mucosa present and moist mucous membranes Throat: Yes posterior oropharynx normal Eyes General: appearance normal, both eyes and all related structures Neck Neck: Yes normal visual inspection, Yes full ROM, Yes no lymphadenopathy, Yes no meningeal signs and Yes supple Thyroid: Thyroid normal Carotids: no bruits Chest Other: Healed surgical scar upper outer aspect of left breast Chest palpation & inspection: normal inspection of the chest and normal palpation of entire chest wall Breast/axilla inspection: normal inspection of the breasts and normal inspection of the axillae Breast/axilla palpation: normal palpation of the breasts Resp Effort & Inspection: normal respiratory effort and able to speak in complete sentences Auscultation: clear to auscultation bilaterally Cardio Palpation: normal PMI Rate: bradycardic Rhythm: regular rhythm Heart sounds: S1 normal heart sound present and S2 normal heart sound present Bruits: no abdominal aortic bruits GI Inspection: Yes normal to inspection Palpation (GI): No Abdominal aortic bruit present, Soft to palpation, nontender, no guarding and no masses Auscultation: normal bowel sounds General: Yes no CVA tenderness Back/Spine/Pelvis Back: no CVA tenderness Cervical Spine: normal cervical lordosis and cervical ROM normal Thoracic/Lumbar Spine: thoracic and lumbar spine normal to inspection and thoraco-lumbar ROM normal Pelvis: no pain with anterior-posterior compression Skin General skin exam: no rashes or lesions noted Neuro General: patient oriented x3, gait normal, tone normal, moves all extremities, N ormal light touch and pain sensation, no meningeal signs, no focal motor deficits and CN's II-XI intact bilaterally Cranial nerves: Yes Normal hearing present Speech: No Abnormal speech present Extrem General: Yes full ROM, Yes no joint enlargement, Yes no clubbing, cyanosis or edema, Yes no pedal edema, Yes no calf tenderness and Yes normal gait Psych Mental Status: mental status grossly normal Speech and movement: Normal speech and movement present Affect: normal affect Attitude: cooperative Thought process: Normal thought process present Thought content: Normal thought content present Coding Level of Care Code Est Pt Prev Care >65y(88764) Diagnoses Annual visit for general adult medical examination with abnormal findings Z00.01 Paroxysmal atrial fibrillation I48.0 Sinus bradycardia R00.1 Ductal carcinoma in situ (DCIS) of left breast D05.12 Encounter for counseling regarding advance directives Z71.89 Flu vaccine refused Z28.21 Additional Codes MARIA G-7 Assessment Billing - MARIA G-7 Assessment Tool: MARIA G-7 Assessment 84437 ([id number]) PHQ-9 - 18254 - PHQ-9 Billing: Yes ([id number]) Vital Signs *Quality* - Advance Care Planning discussion: Completed/Scanned ([id number]) Vital Signs *Quality* - Time spent: 16-45 minutes ([id number]) Assessment & Plan Assessment & Plan (1) Annual visit for general adult medical examination with abnormal findings: Code(s): Z00.01 - Encounter for general adult medical examination with abnormal findings Plan: Will check appropriate labs. Continue regular dental visit every 6 months and regular eye exams, at least every 2 years, sees [facility] eye [facility]. Take adequate calcium in diet and vitamin-D 3 at 2000 IU per cap once a day, in addition to weight-bearing exercises to help maintain good muscle tone and weight control. Continue to do self-breast exam, up-to-date with her screening mammogram. Not due yet for her bone density scan reminded to get her COVID booster and flu shot but patient declined, taking about getting the shingles vaccine, but does not want to get the RSV or the pneumonia vaccine . Due for repeat colonoscopy screening this year due to history of sessile serrated polyps seen on colonoscopy done in [address] Thomas (2) Paroxysmal atrial fibrillation: Code(s): I48.0 - Paroxysmal atrial fibrillation Category: Medical Plan: Followed by cardiology currently maintained on flecainide and metoprolol tartrate 12.5 mg twice a day (3) Sinus bradycardia: Code(s): R00.1 - Bradycardia, unspecified Category: Medical Plan: Currently asymptomatic, followed by cardiology (4) Ductal carcinoma in situ (DCIS) of left breast: Comment: s/p radiation and letrozole started 2022 to complete 5 years Code(s): D05.12 - Intraductal carcinoma in situ of left breast Category: Medical Plan: Followed by Dr. Murphy, currently on letrozole 2.5 mg daily up-to-date with her screening mammogram (5) Encounter for counseling regarding advance directives: Code(s): Z71.89 - Other specified counseling Plan: Initiated the conversation about Advanced Directives. Advanced Directives help patients prepare for current and future decisions about their medical treatment and place of care. Discussed with patient that it is a process where a patients current condition and prognosis are reviewed, their wishes for information regarding their illness are elicited, and likely medical dilemmas are presented and options discussed. Healthcare proxy form completed today. The form can be amended as needed, reviewed yearly and make changes as needed (6) Flu vaccine refused: Code(s): Z28.21 - Immunization not carried out because of patient refusal Category: Medical Plan: Patient does not want to get flu shot or COVID booster Orders: Orders Lipid Panel 08/17/24 D05.12 - Intraductal carcinoma in situ of left breast, I4 8.0 - Paroxysmal atrial fibrillation, R00.1 - Bradycardia, unspecified, Z00.01 - Encounter for general adult medical examination with abnormal findings, Z13.1 - Encounter for screening for diabetes mellitus, Z13.220 - Encounter for screening for lipoid disorders, Z28.21 - Immunization not carried out because of patient refusal, Z71.89 - Other specified counseling Vitamin D 25-OH Total 08/17/24 D05.12 - Intraductal carcinoma in situ of left breast, I48.0 - Paroxysmal atrial fibrillation, R00.1 - Bradycardia, unspecified, Z00.01 - Encounter for general adult medical examination with abnormal findings, Z13.1 - Encounter for screening for diabetes mellitus, Z13.220 - Encounter for screening for lipoid disorders, Z28.21 - Immunization not carried out because of patient refusal, Z71.89 - Other specified counseling Glucose Fasting 08/17/24 D05.12 - Intraductal carcinoma in situ of left breast, I48.0 - Paroxysmal atrial fibrillation, R00.1 - Bradycardia, unspecified, Z00.01 - Encounter for general adult medical examination with abnormal findings, Z13.1 - Encounter for screening for diabetes mellitus, Z13.220 - Encounter for screening for lipoid disorders, Z28.21 - Immunization not carried out because of patient refusal, Z71.89 - Other specified counseling Referrals Gastroenterology Referral Z12.11 - Encounter for screening for malignant neoplasm of colon
[2024-08-17 11:48] VITALS: BP 136/72; PULSE 49; RESP 14; TEMP 36.7; O2SAT 98; BMI 26.0
== END 2024-08-17 12:35 | disposition home or self-care (01) ==
PROVIDERS: PCP Internal Medicine; Visit Provider Internal Medicine
DX: Z00.00 Encounter for general adult medical examination without abnormal findings (principal); I48.0 Paroxysmal atrial fibrillation; R00.1 Bradycardia, unspecified; D05.12 Intraductal carcinoma in situ of left breast; Z28.21 Immunization not carried out because of patient refusal

== ENCOUNTER → 2024-08-17 10:51 | Outpatient (BNVA) | payer MEDICARE, SELFPAY | PROVIDERS: PCP Internal Medicine; Visit Provider Internal Medicine | DX: Z00.01 Encounter for general adult medical examination with abnormal findings (principal); I48.0 Paroxysmal atrial fibrillation; R00.1 Bradycardia, unspecified; D05.12 Intraductal carcinoma in situ of left breast; Z71.89 Other specified counseling; Z28.21 Immunization not carried out because of patient refusal | CPT/HCPCS: 96127; 99397 ==

== ENCOUNTER 2024-09-08 08:17 | Outpatient (REF) | payer MEDICARE, SELFPAY ==
[2024-09-08 10:28] LABS: Cholesterol 230 mg/dL (<200); Glucose Fasting 94 mg/dL (60-99); HDL Cholesterol 68 mg/dL (>40); LDL Cholesterol Calculated 145 mg/dL (<100); Triglycerides 89 mg/dL (<150)
[2024-09-08 10:45] LABS: Vitamin D 25-OH Total 46.4 ng/mL (>30)
== END 2024-09-08 08:18 | disposition home or self-care (01) ==
LOC: HO.HMGCLDS 08:17
PROVIDERS: PCP Internal Medicine; Visit Provider Internal Medicine
DX: Z00.01 Encounter for general adult medical examination with abnormal findings (principal); Z71.89 Other specified counseling; Z13.220 Encounter for screening for lipoid disorders; Z13.1 Encounter for screening for diabetes mellitus; I48.0 Paroxysmal atrial fibrillation; D05.12 Intraductal carcinoma in situ of left breast; R00.1 Bradycardia, unspecified; Z28.21 Immunization not carried out because of patient refusal; Z13.6 Encounter for screening for cardiovascular disorders
CPT/HCPCS: 36415; 80061; 82306; 82947

== ENCOUNTER 2024-11-29 10:50 | Outpatient (AMB) | payer MEDICARE, SELFPAY ==
[2024-11-29 10:54] VITALS: BP 144/67; PULSE 53; O2SAT 99; BMI 25.6
--- NOTE | 2024-11-29 10:54 | MHC.OFFVIS ---
Vital Signs 11/29/24 10:54 Height 5 ft 2 in Weight 139 lb 12.369 oz BMI 25.6 BP 144/67 H Blood Pressure Location Lt brachial Position Sitting Pulse 53 Pulse Source Pulse Oximeter Pulse Oximetry (%) 99 Oxygen Delivery Method Room Air Intake Visit Reasons: Routine pre colonoscopy Intake Note: Pt presents to the office today for a colonoscopy screening. Pt states she is overall feeling well and denies and concerns at this time. Allergies No Known Allergies [No Known Allergies*] Allergy (Verified 11/29/24 10:57) HPI HPI Routine pre colonoscopy: Details: Assessment & Plan (1) Tubular adenoma of colon: ?Comment: ?2020 scope 1 flat polyp not retrieved so repeat 3-6 months and none gated polyp was greater than 10 mm and was a tubular adenoma ?Code(s): D12.6 - Benign neoplasm of colon, unspecified ?Plan: ?THE PROCEDURE NEEDS TO BE REPEATEd in 3-6 months due to the size of the polyps and 1 that was rather flattened unusual looking that could not be retrieved by the scope. She tolerated the procedure well and also did not have any trouble with the prep.? I advised her of the results unless she is not thrilled having to undergo the procedure again so soon she did not have any problems with it then I need to address.? She understands were trying to be safe in make sure that we got all of the flat polyp in that she does not grow polyps vascular than the average person. I did child guidance counselor her to let her children know that they should be screened by age 45 this may may have a higher genetic risk for colon cancer. Her bowels have returned to normal after the procedure and she is agreeable to see me in 4 months and at that time we will get her repeat procedure ordered. (2) Family history of colon cancer: ?Comment: Polyp in 1st degree relative and aunt of colon cancer ?Code(s): Z80.0 - Family history of malignant neoplasm of digestive organss COLONOSCOPY 10/10/2021 Findings: Terminal Ileum-normal Cecum:normal Ascending Colon: x 1 sessile polyp like lesion 6-8 mm removed with forceps Transverse Colon -normal Descending Colon:normal Sigmoid Colon: mild diverticulosis Rectum: Retroflexion with small internal hemorrhoids, grade I, tattoo noted, one small polyp near the area 4-5 mm removed with forceps Anorectum - normal Impression and Post Procedure Diagnosis: polyps internal hemorrhoids diverticular disease Plan: High fiber diet leaflet Avoid straining at stool, epsom salts and sitz bath, anusol supps or cream Repeat Colonoscopy in 2-3 years due to hx of polyps or earlier if clinically indicated Received: 10/10/21 Diagnosis A. Colon, ascending, polypectomy: Sessile serrated polyp. B. Rectum, polypectomy: Hyperplastic mucosal polyp. Laboratory Tests 10/12/24 09:24 WBC 5.0 Hgb 13.6 Hct 40.0 Plt Count 223 Estimated GFR > 60 Total Bilirubin 0.4 AST 22 ALT 26 Alkaline Phosphatase 69 TODAYS VISIT She has been lost to follow up since 2021 She denies any bowel or upper GI problems. She has never had surgery, but she is very sensitive to medications in general. She has Pafib and is only on baby asa for this, she denies any respiratory problems. Her father had a polyp removed and a paternal aunt with CRC PFSH Medical History Flu vaccine refused History of adenomatous polyp of colon Ductal carcinoma in situ (DCIS) of left breast Family history of breast cancer in first degree relative Paroxysmal atrial fibrillation Surgical History History of lumpectomy of left breast Hx of colonoscopy Family History Father Diabetes mellitus Sister Breast cancer, Onset Age: 49 Sister Thyroid cancer Daughter Breast cancer, Onset Age: 28 Social History Household Members: Family Housing: House Are you a primary hospice care consultant to a significant other at home: No Do you presently have visiting nurse or other home services: No Alcohol intake: never Comment: PAIN IMPROVED Patient Tobacco Use Status: Never used Tobacco e-Cigarette/Vaping Use: Never Used service: No Current occupational status: retired Cognitive needs: No Hearing needs: No Vision needs: Yes Female Reproductive History Menstrual Age of Menarche: 12 Review of Systems Const Denies fatigue, Denies fever(s), Denies night sweats, Denies poor appetite and Denies weight loss Eyes Details: glasses Reports requires corrective lenses ENT Reports Normal hearing present, Denies dental pain, Denies dysphagia, Denies hearing loss, Denies mouth pain, Denies odynophagia, Denies throat swelling, Denies tongue swelling and Reports other (Dentition adequate) GI Details: Denies abdominal pain, Denies melena, Denies bloating, Denies hematochezia, Denies constipation, Denies GI cramping, Denies dysphagia, Denies excessive flatus, Denies early satiety, Denies heartburn, Denies diarrhea, Denies nausea, Denies odynophagia, Denies vomiting and Denies hematemesis Skin/Breast Denies pruritus, Denies lesions, Denies rash and Denies jaundice Neuro Reports Normal hearing present and Denies Abnormal speech present Endo Denies fatigue Aller/Immun Denies throat swelling and Denies tongue swelling Physical Exam Vital Signs: Last Vital Signs Pulse 53 11/29/24 10:54 BP 144/67 H 11/29/24 10:54 Pulse Ox 99 11/29/24 10:54 Oxygen Delivery Method Room Air 11/29/24 10:54 BMI result Body Mass Index 25.6 Const General: cooperative, no acute distress, well developed and well groomed Nutritional Appearance: average body habitus and well nourished Orientation/consciousness: oriented to person, oriented to place and oriented to time Limitations: No language barrier HEENT Head: Yes normocephalic and Yes atraumatic Eyes General: appearance normal, both eyes and all related structures Pupils: Equal, round and reactive pupils present Neck Neck: Yes normal visual inspection and Yes no lymphadenopathy Thyroid: Thyroid normal Resp Effort & Inspection: normal respiratory effort and able to speak in complete sentences Auscultation: clear to auscultation bilaterally Cardio Rate: regular rate Rhythm: regular rhythm Heart sounds: Normal, physiologic split S2 sound present Peripheral pulses: radial pulses present and posterior tibial pulses present GI Inspection: No distended and No Abdominal panniculus present Palpation (GI): Soft to palpation, nontender, no guarding, not rigid and No hepatosplenomegaly present Percussion: Yes normal to percussion Auscultation: normal bowel sounds Rectal Exam - Female: deferred Skin General skin exam: no rashes or lesions noted, turgor normal, skin not dry, no jaundice, No spider nevi and no striae Rashes: no rashes Nails: normal Neuro General: oriented to person, oriented to place and oriented to time Cranial nerves: Yes Equal, round and reactive pupils present and Yes Normal hearing present Speech: No Abnormal speech present Extrem General: Yes normal to inspection, No clubbing, No cyanosis and No edema Psych Appearance: grossly normal and well kempt Mental Status: mental status grossly normal Speech and movement: Normal speech and movement present Affect: normal affect Attitude: cooperative Thought process: Normal thought process present and not confabulating Thought content: Normal thought content present Insight: Good insight present (Psych) Judgement: Good judgement present (Psych) Assessment & Plan Assessment & Plan (1) Tubular adenoma of colon: Comment: 2021 scope = large TA repeat 6 mos; 2020 scope 1 flat polyp not retrieved so repeat 3-6 months and none gated polyp was greater than 10 mm and was a tubular adenoma Code(s): D12.6 - Benign neoplasm of colon, unspecified Category: Medical (2) Pre-op examination: Code(s): Z01.818 - Encounter for other preprocedural examination Category: Medical Plan She has been lost to follow up since 2021 She denies any bowel or upper GI problems. She has never had surgery, but she is very sensitive to medications in general. She has Pafib and is only on baby asa for this, she denies any respiratory problems. Her father had a polyp removed and a paternal aunt with CRC Orders: Orders Colonoscopy - GI Use Only Today D12.6 - Benign neoplasm of colon, unspecified Medications: New sodium,potassium,mag sulfates 17.5-3.13-1.6 gram (Suprep Bowel Prep Kit) 480 mL orally; FOR COLONOSCOPY PREP 354 mL 0RF Coding Level of Care Code New Pt Level 3 (88298) Diagnoses Tubular adenoma of colon D12.6 Pre-op examination Z01.818
== END 2024-11-29 11:14 | disposition home or self-care (01) ==
LOC: HO.HGI 10:51
PROVIDERS: PCP Internal Medicine; Visit Provider Nurse Practitioner
DX: Z01.818 Encounter for other preprocedural examination (principal); Z12.11 Encounter for screening for malignant neoplasm of colon; Z86.0102 Personal history of hyperplastic colon polyps
CPT/HCPCS: 99024

== ENCOUNTER → 2024-11-29 10:50 | Outpatient (BNVA) | payer MEDICARE, SELFPAY | PROVIDERS: PCP Internal Medicine; Visit Provider Nurse Practitioner | DX: Z01.818 Encounter for other preprocedural examination (principal); D12.6 Benign neoplasm of colon, unspecified | CPT/HCPCS: 99212 ==

== ENCOUNTER 2024-12-05 10:38 | Outpatient (AMB) | payer MEDICARE, SELFPAY ==
--- NOTE | 2024-12-05 10:44 | A.OFFVIS_ITS ---
Vital Signs 12/05/24 10:45 Height 5 ft 2 in Weight 138 lb BMI 25.2 BP 110/60 Blood Pressure Location Lt brachial Position Sitting Pulse 52 Pulse Source Monitor Intake Visit Reasons: 6m follow up Allergies No Known Allergies [No Known Allergies*] Allergy (Verified 11/29/24 10:57) Medication List - Last Reconciled 12/05/24 by Rafael Cummins MD cholecalciferol (vitamin D3) 50 mcg PO DAILY flecainide 50 mg PO BID letrozole 2.5 mg PO DAILY metoprolol tartrate 12.5 mg (1/2 x 25 mg) PO BID sodium,potassium,mag sulfates 17.5-3.13-1.6 gram (Suprep Bowel Prep Kit) 480 mL orally; FOR COLONOSCOPY PREP HPI Comments Details: Regine returns for follow-up regarding atrial fibrillation. She remains on flecainide and metoprolol. Overall, she is doing good. No complaints whatsoever. Unrestricted physical activity. [facility] Medical History Flu vaccine refused History of adenomatous polyp of colon Ductal carcinoma in situ (DCIS) of left breast Family history of breast cancer in first degree relative Paroxysmal atrial fibrillation Surgical History History of lumpectomy of left breast Hx of colonoscopy Family History Father Diabetes mellitus Sister Breast cancer, Onset Age: 49 Sister Thyroid cancer Daughter Breast cancer, Onset Age: 28 Social History Household Members: Family Housing: House Are you a primary care transition mgr to a significant other at home: No Do you presently have visiting nurse or other home services: No Alcohol intake: never Comment: PAIN IMPROVED Patient Tobacco Use Status: Never used Tobacco e-Cigarette/Vaping Use: Never Used service: No Current occupational status: retired Cognitive needs: No Hearing needs: No Vision needs: Yes Female Reproductive History Menstrual Age of Menarche: 12 Review of Systems Const Denies weakness ENT Denies dizziness Card Denies chest pain, Denies chest pain with activity, Denies syncope, Denies rapid heart rate, Denies pedal edema, Denies edema, Denies leg edema, Denies lightheadedness, Denies palpitations, Denies dyspnea, Denies dyspnea on exertion and Denies orthopnea Resp Denies cough, Denies dyspnea and Denies dyspnea on exertion GI Denies hematochezia and Denies change in stool character Musc Denies abnormal gait, Denies muscle cramps, Denies muscle weakness, Denies numbness, Denies radiating pain into limb and Denies tingling Neuro Denies abnormal gait, Denies dizziness, Denies syncope, Denies numbness, Denies tingling and Denies weakness Endo Denies palpitations Physical Exam Vital Signs: Last Vital Signs Pulse 52 12/05/24 10:45 BP 110/60 12/05/24 10:45 BMI result Body Mass Index 25.2 Const General: comfortable and no acute distress Orientation/consciousness: patient oriented x3 HEENT Other: Unremarkable Head: Yes normal to inspection Neck Neck: Yes normal visual inspection Chest Chest palpation & inspection: normal inspection of the chest Resp Auscultation: clear to auscultation bilaterally Cardio Palpation: normal PMI Heart sounds: S1 normal heart sound present, S2 normal heart sound present, no gallops, no murmurs and no rubs GI Palpation (GI): Soft to palpation Back/Spine/Pelvis Other: unremarkable Skin General skin exam: no rashes or lesions noted Neuro General: patient oriented x3 Extrem General: Yes normal to inspection Psych Mental Status: mental status grossly normal Office Procedures EKG Details: EKG with underlying sinus bradycardia at 52/Min; no significant ST-T changes; [place] [id number], Complete Assessment & Plan Assessment & Plan (1) Paroxysmal atrial fibrillation: Code(s): I48.0 - Paroxysmal atrial fibrillation Category: Medical (2) Sinus bradycardia: Code(s): R00.1 - Bradycardia, unspecified Category: Medical (3) Encounter for monitoring anti-arrhythmic therapy: Code(s): Z51.81 - Encounter for therapeutic drug level monitoring; Z79.899 - Other bi tri operator (current) drug therapy Category: Medical Plan In the last echocardiogram, LVEF is 60-65%. Normal peak global longitudinal strain. Otherwise unremarkable. Holter with evidence of sinus bradycardia, but otherwise unremarkable. She is very stable on the current regimen of flecainide/low-dose beta-blockers. She has some bradycardia but no exercise intolerance and hence okay to continue. In the past, when we cut back on medications, she had atrial fibrillation hence can keep it the weight is for now. Not on anticoagulation because of infrequent episodes. EKG in 6 months time. Follow up in one year. Coding Level of Care Code Est Pt Level 4 (42745) Complex EM visit Add On G2211 Diagnoses Paroxysmal atrial fibrillation I48.0 Sinus bradycardia R00.1 Encounter for monitoring anti-arrhythmic therapy Z51.81; Z79.899 CPT Codes EKG - CPT: 25824-[id number], Complete ([id number])
[2024-12-05 10:45] VITALS: BP 110/60; PULSE 52; BMI 25.2
== END 2024-12-05 11:06 | disposition home or self-care (01) ==
LOC: HO.HCS 10:38
PROVIDERS: PCP Internal Medicine; Visit Provider Internal Medicine
DX: I48.0 Paroxysmal atrial fibrillation (principal); R00.1 Bradycardia, unspecified; Z51.81 Encounter for therapeutic drug level monitoring; Z79.899 Other long term (current) drug therapy
CPT/HCPCS: 93010; 99214; G2211

== ENCOUNTER → 2024-12-05 10:38 | Outpatient (BNVA) | payer MEDICARE, SELFPAY | PROVIDERS: PCP Internal Medicine; Visit Provider Internal Medicine | DX: I48.0 Paroxysmal atrial fibrillation (principal); R00.1 Bradycardia, unspecified; Z51.81 Encounter for therapeutic drug level monitoring; Z79.899 Other long term (current) drug therapy | CPT/HCPCS: 93005; 99212 ==

== ENCOUNTER 2025-05-02 06:55 | Day surgery (SDC) | payer MEDICARE, SELFPAY ==
--- NOTE | 2025-04-28 09:32 | HO.ANESPROP2 ---
Documented by User: Lady Potter NP 04/28/25 09:33 HPI - Anesthesia Eval Consult details Narrative: 70yo F for Colonoscopy PMFSH Active Problems Active Problems: All Active Problems Pre-op examination (Acute) Flu vaccine refused (Acute) Sinus bradycardia (Acute) Ductal carcinoma in situ (DCIS) of left breast (Chronic) Paroxysmal atrial fibrillation (Acute) Past Medical History Medical History Flu vaccine refused History of adenomatous polyp of colon Ductal carcinoma in situ (DCIS) of left breast Family history of breast cancer in first degree relative Paroxysmal atrial fibrillation Family History Family History Father Diabetes mellitus Sister Breast cancer, Onset Age: 49 Sister Thyroid cancer Daughter Breast cancer, Onset Age: 28 Family history of problems with anesthesia: No Surgical History Surgical History History of lumpectomy of left breast Hx of colonoscopy History of Problems with Anesthesia: No Social History Social History Household Members: Family Housing: House Are you a primary patient care assistant to a significant other at home: No Do you presently have visiting nurse or other home services: No Alcohol intake: never Comment: PAIN IMPROVED Patient Tobacco Use Status: Never used Tobacco e-Cigarette/Vaping Use: Never Used Have you been hit, kicked, punched, or otherwise hurt by someone within the past year? If so, by whom?: No Are you DNR?: No Advance Directives: No Advance Directives Information Provided: Yes Poor oral hygiene: No service: No Current occupational status: retired Cognitive needs: No Hearing needs: No Vision needs: Yes Meds Allergies Allergy/AdvReac Type Severity Reaction Status Date / Time No Known Allergies (No Known Allergy Verified 05/02/25 07:12 Allergies*) Home Medications ?Medication ?Instructions ?Recorded ?Confirmed ?Last Taken ?Type cholecalciferol (vitamin D3) 50 50 mcg PO DAILY 10/09/20 05/02/25 Unknown History mcg (2,000 unit) capsule Assessment and Plan Assessment Anesthesia Assessment: Chart Reviewed Final Anesthetic Review Family History of Problems with Anesthesia: No History of Problems with Anesthesia: No Documented by User: Larry Wan MD 05/02/25 07:38 PMFSH Past Medical History Medical History Flu vaccine refused History of adenomatous polyp of colon Ductal carcinoma in situ (DCIS) of left breast Family history of breast cancer in first degree relative Paroxysmal atrial fibrillation Cognitive capacity: normal Functional capacity: independent ambulation Family History Family History Father Diabetes mellitus Sister Breast cancer, Onset Age: 49 Sister Thyroid cancer Daughter Breast cancer, Onset Age: 28 Surgical History Surgical History History of lumpectomy of left breast Hx of colonoscopy Social History Social History Household Members: Family Housing: House Are you a primary patient care assistant to a significant other at home: No Do you presently have visiting nurse or other home services: No Alcohol intake: never Comment: PAIN IMPROVED Patient Tobacco Use Status: Never used Tobacco e-Cigarette/Vaping Use: Never Used Have you been hit, kicked, punched, or otherwise hurt by someone within the past year? If so, by whom?: No Are you DNR?: No Advance Directives: No Advance Directives Information Provided: Yes Poor oral hygiene: No service: No Current occupational status: retired Cognitive needs: No Hearing needs: No Vision needs: Yes Meds Allergies Allergy/AdvReac Type Severity Reaction Status Date / Time No Known Allergies (No Known Allergy Verified 05/02/25 07:12 Allergies*) Home Medications ?Medication ?Instructions ?Recorded ?Confirmed ?Last Taken ?Type cholecalciferol (vitamin D3) 50 50 mcg PO DAILY 10/09/20 05/02/25 Unknown History mcg (2,000 unit) capsule Exam Exam Date and Time: 05/02/25 Airway Mallampati Class: II TM Dist: >3cm Neck ROM: Full Heart: normal Lungs: normal Other: normal Assessment and Plan Assessment Anesthesia Assessment: Anesthesia Plan Discussed Final Anesthetic Review NPO: Yes ASA Class: II Final Preanesthetic Review: No Changes in Pt Med Stat, Meds/Allgs Chart Reviewed, Consent Obtained/Reviewed and Anes Risks/Benef Reviewed Patient Risk: Low Procedure Risk: Low Anesthetic Plan Anesthetic Plan: MAC: Disposition: Standard PACU
[2025-05-02 07:11] VITALS: BMI 24.8
[2025-05-02] MEDS: Lactated Ringers 1,000 ML 100 ML IVCONT (07:16)
[2025-05-02 07:22] VITALS: BP 140/60; PULSE 53; RESP 18; TEMP 36.6; O2SAT 96
--- NOTE | 2025-05-02 08:14 | MHC.SHP ---
Pre-Procedural Eval Section A - 24 Hr Update-Section A only Date of Service: 05/02/25 Section B - Complete if H&P > 30 days Chief Complaint: Benign neoplasm of colon,screening Relevant Family History (Specify if Yes): No Relevant Social History: None Present Medications: see Short Stay Collaborative assessment Medical History: Significant History (Flu vaccine refused History of adenomatous polyp of colon Ductal carcinoma in situ (DCIS) of left breast Family history of breast cancer in first degree relative Paroxysmal atrial fibrillation) History of Previous Operations: Relevant previous surgery/procedure and date(s) (History of lumpectomy of left breast Hx of colonoscopy) Allergies: Allergies Allergy/AdvReac Type Severity Reaction Status Date / Time No Known Allergies (No Known Allergy Verified 05/02/25 07:12 Allergies*) Review of Systems Sugical H&P ROS: Negative: Constitution, Cardiovascular, Respiratory, Neurological, Psychiatric, Hem-Onc, Allergic/Immunologic, Gastrointestinal, Genitourinary, Musculoskeletal, Integumentary, Endocrine and Eyes/Ears/Nose/Throat Exam Surgical H&P Exam: Normal: HEENT, Normal: Heart, Normal: Lungs, Normal: Extremities, Normal: Abdomen, Normal: Skin and Normal: Neurological Plan Diagnosis/Plan: Unchanged I have reviewed the history and physical and performed a pertinent physical examination on my patient. No changes have occurred unless specified. Time Spent With Patient Time: Total time managing care of this patient today ____ minutes.
--- NOTE | 2025-05-02 08:43 | P.OP_ITS ---
Operative Note Operative Note Date of Service: 05/02/25 Narrative: Operative Information Procedure Description: Colonoscopy Indication: screening Anesthesia: MAC COLONOSCOPY Instrument: Olympus variable stiffness pediatric scope 190L Colonoscopy Monitoring: Vital signs and clinical assessment, continuous EKG monitoring, Pulse oximetry, Carbon Dioxide monitoring and blood pressure monitoring were done throughout the procedure. Colon withdrawal time was 8 minutes. Procedure: The patient was placed in the left lateral decubitis position and pre-procedure medications were administered. After a digital rectal examination of the ano-rectum, the video colonoscope was inserted into the rectum and advanced through the colon to the cecum/TI. The colonoscope was slowly withdrawn in a retrograde panoramic fashion and the colon mucosa was carefully examined including a retroflexed view of the rectum. Findings and interventions are described below. Procedure Difficulty: easy Findings: Terminal Ileum-normal Cecum:normal right sided retroflexion- normal Ascending Colon: normal Transverse Colon -normal Descending Colon:normal Sigmoid Colon: moderate diverticulosis Rectum: Retroflexion with small internal hemorrhoids seen, grade I, prior tattoo noted Anorectum - normal Intervention: none Colon preparation: Christiana Bowel Preparation Scale Right colon; 2 Transverse colon: 2 Left colon; 2 (0 = Unprepared colon segment with mucosa not seen due to solid stool that cannot be cleared. 1 = Portion of mucosa of the colon segment seen, but other areas of the colon segment not well seen due to staining, residual stool and/or opaque liquid. 2 = Minor amount of residual staining, small fragments of stool and/or opaque liquid, but mucosa of colon segment seen well. 3 = Entire mucosa of colon segment seen well with no residual staining, small fragments of stool or opaque liquid) Impression and Post Procedure Diagnosis: diverticulosis internal hemorrhoids Plan: High fiber diet leaflet Avoid straining at stool, epsom salts and sitz bath, anusol supps or cream Repeat Colonoscopy in 5 years due to prior hx of polyps or earlier if clinically indicated Above findings were reviewed with the patient and relevant handouts were provided if indicated.
[2025-05-02 08:47] VITALS: BP 84/42; PULSE 50; RESP 16; TEMP 36.5; O2SAT 95
[2025-05-02 09:02] VITALS: BP 118/58; PULSE 52; RESP 16; O2SAT 97
[2025-05-02 09:17] VITALS: BP 128/66; PULSE 50; RESP 16; TEMP 36.3; O2SAT 100
== END 2025-05-02 10:26 | disposition home or self-care (01) ==
PROVIDERS: PCP Internal Medicine; Visit Provider Internal Medicine Gastroenterology
PROC: 0DJD8ZZ Inspection of Lower Intestinal Tract, Via Natural or Artificial Opening Endoscopic (ICD-10-PCS; CPT 45378; principal; 2025-05-02 08:10)
DX: Z12.11 Encounter for screening for malignant neoplasm of colon (principal); Z86.0101 Personal history of adenomatous and serrated colon polyps; K64.0 First degree hemorrhoids; K57.30 Diverticulosis of large intestine without perforation or abscess without bleeding
CPT/HCPCS: 45378; J2003; J2704; J3010

== ENCOUNTER → 2025-05-02 06:55 | Outpatient (BNV) | payer MEDICARE, SELFPAY | PROVIDERS: PCP Internal Medicine; Visit Provider Internal Medicine Gastroenterology | DX: Z12.11 Encounter for screening for malignant neoplasm of colon (principal); Z86.0100 Personal history of colon polyps, unspecified; K57.30 Diverticulosis of large intestine without perforation or abscess without bleeding; K64.0 First degree hemorrhoids | CPT/HCPCS: G0105 ==

== ENCOUNTER 2025-05-03 10:55 | Outpatient (REF) | payer MEDICARE, SELFPAY ==
--- NOTE | ~2025-05-03 | MM_ITS ---
EXAMINATION: MM DIAGNOSTIC DIGITAL BREAST TOMOSYNTHESIS, BILATERAL CLINICAL INFORMATION: History of left breast cancer in 2021 status post lumpectomy. History of right excisional biopsy. COMPARISON: Mammography: Comparison is made with relevant prior exams. TECHNIQUE: Digital breast mammography with tomosynthesis is performed in both the craniocaudal and mediolateral oblique views along with computer-aided detection (CAD). FINDINGS: There are scattered areas of fibroglandular density. Bilateral postsurgical changes are stable. There are no significant masses, abnormal calcifications, or other abnormalities. Results are provided to the patient at time of visit by the technologist. MM/MM tomosynthesis diagnostic BI IMPRESSION: There are no significant changes from prior study. ASSESSMENT: BI-RADS Category 2: Benign RECOMMENDATION: 1 year F/U This patient's information was entered into a reminder system with a target due date for their next mammogram. Electronically signed by: Alison Castano DO 05/03/2025 11:35 AM EDT
== END 2025-05-03 10:56 | disposition home or self-care (01) ==
LOC: HO.MAMMO 10:55
PROVIDERS: PCP Internal Medicine; Visit Provider Internal Medicine
DX: D05.12 Intraductal carcinoma in situ of left breast (principal)
CPT/HCPCS: 77062; 77066

== ENCOUNTER → 2025-05-03 11:00 | Outpatient (BNV) | payer MEDICARE, SELFPAY | PROVIDERS: PCP Internal Medicine; Visit Provider Internal Medicine | DX: Z85.3 Personal history of malignant neoplasm of breast (principal) | CPT/HCPCS: 77066; G0279 ==